=== PATIENT | male | born 1975 | race Caucasian/White ===

== ENCOUNTER 2018-01-20 18:42 | Emergency (ER) | payer BC, SELFPAY ==
[2018-01-20 18:49] VITALS: BP 161/95; PULSE 97; RESP 18; TEMP 36.9; O2SAT 99; BMI 31.0
[2018-01-20 18:56] VITALS: BP 161/95; PULSE 97; RESP 18; TEMP 36.9; O2SAT 99; BMI 31.0
[2018-01-20] MEDS: SODIUM CHLORIDE 0.9% 1,000 ML 1000 ML IV (19:38)
[2018-01-20] MEDS: ONDANSETRON 4 MG/2 ML INJ IV ×2 (19:38→22:02)
--- NOTE | 2018-01-20 19:55 | ED.NAVMDI ---
HPI - Nausea/Vomiting/Diarrhea <ROZ Bryson - Last Filed: 01/20/18 22:49> General Chief complaint: Nausea/Vomiting/Diarrhea Stated complaint: EXTREME NAUSEA AND HAS BEEN VOMITING Time Seen by Provider: 01/20/18 19:43 Source: patient and family Mode of arrival: ambulatory Limitations: no limitations History of Present Illness HPI Narrative: Patient presents with abdominal pain and nausea today. Patient has had several episodes of this pain and nausea. States that his workup sores come back normal. States has been ongoing for many years. Then it starts randomly. Patient denies any constipation, fevers, shortness of breath or chest pain. States he smokes marijuana every day. States his pain is generalized. Denies urinary symptoms, cough, congestion or shortness of breath. Related Data Home Medications Medication Instructions Recorded Confirmed omeprazole #0 04/27/13 sertraline [Zoloft] #0 04/27/13 Previous Rx's Medication Instructions Recorded prednisone 40 mg PO Q DAY #8 tab 06/05/17 promethazine 25 mg PO Q6HP PRN #10 tab 06/05/17 promethazine [Phenadoz] 25 mg NE Q6HP PRN #5 supp 06/05/17 prednisone 10 mg PO SEE INSTRUCTIONS 12 Days 06/09/17 #0 tab promethazine [Phenergan] 25 mg RC Q6HP PRN #20 06/09/17 dicyclomine 10 mg PO Q8HP PRN #10 cap 06/14/17 Allergies Allergy/AdvReac Type Severity Reaction Status Date / Time No Known Allergies Allergy Uncoded 11/11/17 12:26 Review of Systems <ROZ Bryson - Last Filed: 01/20/18 22:49> Review of Systems GENERAL: See HPI HEENT: Denies sinus pain, ear pain, sore throat, difficulty swallowing, dizziness. RESPIRATORY: Denies dyspnea, cough, wheezing, hemoptysis, sputum. CARDIOVASCULAR: Denies chest pain, palpitations, orthopnea, edema, GASTROINTESTINAL: See HPI : Denies dysuria, frequency, incontinence, hematuria, urinary retention. MUSCULOSKELETAL: denies weakness, joint pain, or bony pain SKIN: Denies rash, skin lesions, or other NEUROLOGIC: Denies weakness, headache, numbness, change in speech, confusion, seizures, incoordination. PSYCHIATRIC: No concerning psychosocial issues. 12 point review of systems is negative except for those stated above Exam <DIAMOND Bryson - Last Filed: 01/20/18 22:49> Narrative Exam Narrative: GENERAL: This is a well-nourished, well-developed patient, with a bedside HEAD: Atraumatic. Normocephalic. No temporal or scalp tenderness. EYES: Pupils equal round and reactive. Extraocular motions intact. No scleral icterus. No injection or drainage. ENT: Nose without bleeding, purulent drainage or septal hematoma. Throat without erythema, tonsillar hypertrophy or exudate. Uvula midline. Airway patent. NECK: Trachea midline. No JVD or lymphadenopathy. Supple, nontender, no meningeal signs. CARDIOVASCULAR: Regular rate and rhythm without murmurs, gallops, or rubs. RESPIRATORY: Clear to auscultation. Breath sounds equal bilaterally. No wheezes, rales, or rhonchi. GASTROINTESTINAL: Abdomen soft, no guarding to palpation. No rebound tenderness. Generalized pain to palpation. Negative for Wright sign. EXTREMITIES: No clubbing, cyanosis, or edema. No joint tenderness, effusion, or edema noted. BACK: Nontender without deformity or crepitance. No flank tenderness. NEURO: AOx3. SKIN: No rash or erythema. Initial Vital Signs Initial Vital Signs: Vital Signs Temperature 98.5 F 01/20/18 18:49 Pulse Rate 97 H 01/20/18 18:49 Respiratory Rate 18 01/20/18 18:49 Blood Pressure 161/95 H 01/20/18 18:49 Pulse Oximetry 99 01/20/18 18:49 <Marylu Villela DO - Last Filed: 01/21/18 00:48> Initial Vital Signs Initial Vital Signs: Vital Signs Temperature 98.5 F 01/20/18 18:49 Pulse Rate 97 H 01/20/18 18:49 Respiratory Rate 18 01/20/18 18:49 Blood Pressure 161/95 H 01/20/18 18:49 Pulse Oximetry 99 01/20/18 18:49 Course <DIAMOND Bryson - Last Filed: 01/20/18 22:49> Hospital Course: Patient presented for abdominal pain and nausea. He had an IV placed, was given fluids, received Zofran and morphine for pain and nausea. He had a CBC, CMP, lipase and troponin drawn. With WBCs back slightly elevated. Discussed at length with patient present cons of another CT scan including increased radiation. Patient elected for CT scan, came back normal. Patient received a 2nd dose of Zofran and morphine for pain and nausea. Discussed at length with patient further workup, patient declined and stated he would follow up with primary care provider. Patient's urine came back normal as well. Discussed at length return precautions for emergency department including fevers, sudden change in belly pain. I spoke with the patient and his several times throughout his stay. Patient had no questions or concerns upon discharge. Orders Ordered: ED Orders 01/20/18 19:30 Complete Blood Count AUTO DIFF Stat Comprehensive Metabolic Panel Stat Lipase Stat Troponin with CK Cardiac Panel Stat 01/20/18 19:54 EKG-12 Lead Stat 01/20/18 21:08 CT abdomen pelvis w con Stat Discontinued Medications Sodium Chloride (Normal Saline 0.9%) 1,000 mls @ 1,000 mls/hr IV BOLUS ONE Stop: 01/20/18 20:35 Last Infusion: 01/20/18 20:46 Dose: 0 mls/hr Admin: 01/20/18 19:38 Dose: 1,000 mls/hr Sodium Chloride (Normal Saline 0.9%) 1,000 mls @ 150 mls/hr IV CONT JOSE Last Admin: 01/20/18 20:09 Dose: Not Given Morphine Sulfate (Morphine) 2 mg IV NOW ONE Stop: 01/20/18 19:55 Last Admin: 01/20/18 20:09 Dose: 2 mg Morphine Sulfate (Morphine) 2 mg IV NOW ONE Stop: 01/20/18 21:57 Last Admin: 01/20/18 22:02 Dose: 2 mg Ondansetron HCl (Zofran) 4 mg IV NOW ONE Stop: 01/20/18 19:38 Last Admin: 01/20/18 19:38 Dose: 4 mg Ondansetron HCl (Zofran) 4 mg IV NOW ONE Stop: 01/20/18 21:57 Last Admin: 01/20/18 22:02 Dose: 4 mg Vital Signs - 8 hr 01/20/18 18:49 01/20/18 18:56 01/20/18 20:39 Temperature 98.5 F 98.5 F Pulse Rate 97 H 97 H 98 H Respiratory Rate 18 18 18 Blood Pressure 161/95 H 161/95 H Blood Pressure [Right Arm] 147/88 H Pulse Oximetry 99 99 100 01/20/18 22:18 Temperature Pulse Rate 94 H Respiratory Rate 17 Blood Pressure Blood Pressure [Right Arm] 143/90 H Pulse Oximetry 100 <Marylu Villela, - Last Filed: 01/21/18 00:48> Orders Ordered: ED Orders 01/20/18 19:30 Complete Blood Count AUTO DIFF Stat Comprehensive Metabolic Panel Stat Lipase Stat Troponin with CK Cardiac Panel Stat 01/20/18 19:54 EKG-12 Lead Stat 01/20/18 21:08 CT abdomen pelvis w con Stat Discontinued Medications Sodium Chloride (Normal Saline 0.9%) 1,000 mls @ 1,000 mls/hr IV BOLUS ONE Stop: 01/20/18 20:35 Last Infusion: 01/20/18 20:46 Dose: 0 mls/hr Admin: 01/20/18 19:38 Dose: 1,000 mls/hr Sodium Chloride (Normal Saline 0.9%) 1,000 mls @ 150 mls/hr IV CONT JOSE Last Admin: 01/20/18 20:09 Dose: Not Given Morphine Sulfate (Morphine) 2 mg IV NOW ONE Stop: 01/20/18 19:55 Last Admin: 01/20/18 20:09 Dose: 2 mg Morphine Sulfate (Morphine) 2 mg IV NOW ONE Stop: 01/20/18 21:57 Last Admin: 01/20/18 22:02 Dose: 2 mg Ondansetron HCl (Zofran) 4 mg IV NOW ONE Stop: 01/20/18 19:38 Last Admin: 01/20/18 19:38 Dose: 4 mg Ondansetron HCl (Zofran) 4 mg IV NOW ONE Stop: 01/20/18 21:57 Last Admin: 01/20/18 22:02 Dose: 4 mg Vital Signs - 8 hr 01/20/18 18:49 01/20/18 18:56 01/20/18 20:39 Temperature 98.5 F 98.5 F Pulse Rate 97 H 97 H 98 H Respiratory Rate 18 18 18 Blood Pressure 161/95 H 161/95 H Blood Pressure [Right Arm] 147/88 H Pulse Oximetry 99 99 100 01/20/18 22:18 Temperature Pulse Rate 94 H Respiratory Rate 17 Blood Pressure Blood Pressure [Right Arm] 143/90 H Pulse Oximetry 100 MDM - Nausea/Vomiting/Diarrhea <Regla Myrick, FREELANCE OPERATOR- - Last Filed: 01/20/18 22:49> Lab Data Attestation: I reviewed the patient's lab results. Result diagrams: 01/20/18 19:30 01/20/18 19:30 Lab Results 01/20/18 01/20/18 01/20/18 Range/Units 19:30 19:30 19:30 WBC 14.3 H (4.5-11.0) X10^3/uL RBC 5.11 (4.5-5.9) X10^6/uL Hgb 16.1 (13.5-17.5) g/dL Hct 46.9 (41-53) % MCV 91.7 (80-100) fL MCH 31.5 (26-34) PG MCHC 34.4 (30-36) % RDW 13.7 (11.6-14.8) % Plt Count 297 (150-400) X10^3/uL Neut % (Auto) 92.1 H (50-75) % Lymph % (Auto) 5.7 L (25-40) % [place] % (Auto) 2.1 L (3-14) % Eos % (Auto) 0.0 L (2-4) % Baso % (Auto) 0.1 (0-2) % Neut # (Auto) 07235 H (6030-8906) /uL Sodium 144 (137-145) mmol/L Potassium 4.1 (3.4-5.1) mmol/L Chloride 104 (98-107) mmol/L Carbon Dioxide 21 L (22-32) mmol/L BUN 20 (9-20) mg/dL Creatinine 0.80 (0.66-1.25) mg/dL Estimated GFR > 60.0 (>60) mL/min BUN/Creatinine Ratio 25.0 H (6-22) Glucose 149 H (70-100) mg/dL Calcium 10.1 (8.4-10.2) mg/dL Total Bilirubin 2.1 H (0.2-1.3) mg/dL AST 29 (17-59) IU/L ALT 39 (21-72) IU/L Alkaline Phosphatase 90 (38-126) U/L Total Creatine Kinase 58 (55-170) U/L Troponin I < 0.012 (0.01-0.034) ng/mL Total Protein 8.6 H (6.3-8.2) g/dL Albumin 5.2 H (3.5-5.0) g/dL Globulin 3.4 (1.7-4.1) g/dL Albumin/Globulin Ratio 1.5 (1.0-2.8) Lipase 35 (23-300) U/L ECG Data Attestation: I personally reviewed and interpreted this ECG as follows: Prior ECG tracings: not available for review Interpretation: Sinus rhythm. Ventricular rate 96. No ST elevation or depression. No ectopy.NE interval 154 MDM Narrative Medical decision making narrative: Patient presented for repeat abdominal pain. Blood work was concerning for slightly elevated WBCs. However otherwise grossly normal CBC, CMP, lipase and negative troponin. EKG was within normal limits. CT scan showed no acute findings. Urine came back normal. Patient declined any further workup at this point time. Stated to follow up his primary care provider. I encouraged him to trial several weeks without smoking marijuana to see if that helps his pain and nausea. Patient had no questions or concerns upon discharge. Discussed ED precautions. Patient declined further prescriptions for pain and nausea medication. <Marylu Villela, - Last Filed: 01/21/18 00:48> Lab Data Lab Results 01/20/18 01/20/18 01/20/18 Range/Units 19:30 19:30 19:30 WBC 14.3 H (4.5-11.0) X10^3/uL RBC 5.11 (4.5-5.9) X10^6/uL Hgb 16.1 (13.5-17.5) g/dL Hct 46.9 (41-53) % MCV 91.7 (80-100) fL MCH 31.5 (26-34) PG MCHC 34.4 (30-36) % RDW 13.7 (11.6-14.8) % Plt Count 297 (150-400) X10^3/uL Neut % (Auto) 92.1 H (50-75) % Lymph % (Auto) 5.7 L (25-40) % [place] % (Auto) 2.1 L (3-14) % Eos % (Auto) 0.0 L (2-4) % Baso % (Auto) 0.1 (0-2) % Neut # (Auto) 80451 H (5607-7250) /uL Sodium 144 (137-145) mmol/L Potassium 4.1 (3.4-5.1) mmol/L Chloride 104 (98-107) mmol/L Carbon Dioxide 21 L (22-32) mmol/L BUN 20 (9-20) mg/dL Creatinine 0.80 (0.66-1.25) mg/dL Estimated GFR > 60.0 (>60) mL/min BUN/Creatinine Ratio 25.0 H (6-22) Glucose 149 H (70-100) mg/dL Calcium 10.1 (8.4-10.2) mg/dL Total Bilirubin 2.1 H (0.2-1.3) mg/dL AST 29 (17-59) IU/L ALT 39 (21-72) IU/L Alkaline Phosphatase 90 (38-126) U/L Total Creatine Kinase 58 (55-170) U/L Troponin I < 0.012 (0.01-0.034) ng/mL Total Protein 8.6 H (6.3-8.2) g/dL Albumin 5.2 H (3.5-5.0) g/dL Globulin 3.4 (1.7-4.1) g/dL Albumin/Globulin Ratio 1.5 (1.0-2.8) Lipase 35 (23-300) U/L Discharge Plan Departure Patient Disposition: Home, Self-Care Clinical Impression: Abdominal pain, Nausea Discharge Date/Time: 01/20/18 22:54 Interventions: ED Discharge Assessment Last Done: 01/20/18 22:53 Instructions: Nausea (Alternative Therapy), DI for Abdominal Pain-Adult, DI for Nausea -- Adult Activity Restrictions/Additional Instructions: Today we did some lab work and a CT scan. The CT came back normal. We discussed that you have a slightly elevated white count which could indicate infection or be inflammatory. I would like you to follow up with primary care provider. I suggest that you stop smoking or using marijuana every day. I suggest that you avoid citrus, acidic foods, spicy foods or fried foods. ED simple diet. Come back to the emergency department if he develops any fever, sudden changes in her belly pain, chest pain or shortness of breath. Prescriptions: No Action sertraline [Zoloft] 25 MG tablet Qty: 0 RF: 0 omeprazole 20 MG capsule,delayed release(DR/EC) Qty: 0 RF: 0 promethazine [Phenadoz] 25 MG suppository 25 mg NE Q6HP PRNQty: 5 RF: 0 prednisone 20 MG tablet 40 mg PO Q DAY Qty: 8 RF: 0 promethazine 25 MG tablet 25 mg PO Q6HP PRNQty: 10 RF: 0 prednisone 10 MG tablet 10 mg PO SEE INSTRUCTIONS 12 Days Qty: 0 RF: 0 promethazine [Phenergan] 25 MG suppository 25 mg RC Q6HP PRNQty: 20 RF: 0 dicyclomine 10 MG capsule 10 mg PO Q8HP PRNQty: 10 RF: 0 Referrals: Eric Sun MD [Primary Care Provider] - <Marylu Villela DO - Last Filed: 01/21/18 00:48> Cosign ED Attending Cossandyature Attestation: I was immediately available in the department for consultation. Documentation has been reviewed. I agree with assessment and plan.
[2018-01-20] MEDS: MORPHINE 2 MG/ML INJ IV ×2 (20:09→22:02)
[2018-01-20 20:12] LABS: Add Manual Diff / Slide Review NO; Basophils Percent Auto 0.1 % (0-2); Hematocrit 46.9 % (41-53); Hemoglobin 16.1 g/dL (13.5-17.5); Lymphocytes Percent Auto 5.7 % (25-40); Mean Corpuscular HGB Conc 34.4 % (30-36); Mean Corpuscular Hemoglobin 31.5 PG (26-34); Mean Corpuscular Volume 91.7 fL (80-100); Monocytes Percent Auto 2.1 % (3-14); Neutrophils Absolute Auto 13100 /uL (3000-5900); Neutrophils Percent Auto 92.1 % (50-75); Platelet Count 297 X10^3/uL (150-400); Red Blood Cell Count 5.11 X10^6/uL (4.5-5.9); Red Cell Distribution Width 13.7 % (11.6-14.8); White Blood Cell Count 14.3 X10^3/uL (4.5-11.0)
[2018-01-20 20:14] LABS: Creatine Kinase 58 U/L (55-170)
[2018-01-20 20:16] LABS: Alanine Aminotransferase 39 IU/L (21-72); Albumin 5.2 g/dL (3.5-5.0); Albumin Globulin Ratio 1.5 (1.0-2.8); Alkaline Phosphatase 90 U/L (38-126); Aspartate Aminotransferase 29 IU/L (17-59); Bilirubin Total 2.1 mg/dL (0.2-1.3); Blood Urea Nitrogen 20 mg/dL (9-20); Calcium 10.1 mg/dL (8.4-10.2); Carbon Dioxide 21 mmol/L (22-32); Chloride 104 mmol/L (98-107); Estimated Glomerular Filt Rate > 60.0 mL/min (>60); Globulin 3.4 g/dL (1.7-4.1); Glucose 149 mg/dL (70-100); HEMOLYSIS 17 (0-50); Lipase 35 U/L (23-300); Potassium 4.1 mmol/L (3.4-5.1); Sodium 144 mmol/L (137-145); Total Protein 8.6 g/dL (6.3-8.2)
[2018-01-20 20:27] LABS: Troponin I < 0.012 ng/mL (0.01-0.034)
[2018-01-20 20:39] VITALS: BP 147/88; PULSE 98; RESP 18; O2SAT 100
--- NOTE | 2018-01-20 21:08 | DI.CT.S_ITS ---
PROCEDURE: CT ABDOMEN PELVIS W CON INDICATIONS: abdominal pain ongoing with nausea and vomiting TECHNIQUE: After the administration of oral and intravenous contrast, 5 mm thick sections acquired from the diaphragms to the symphysis. 5 mm thick coronal and sagittal reformats were performed. For radiation dose reduction, the following was used: automated exposure control, adjustment of mA and/or kV according to patient size. COMPARISON: None. FINDINGS: Image quality: Diagnostic ABDOMEN: Lung bases: Lung bases are clear. Heart size is normal. Solid organs: Liver is normal in size and enhancement. Gallbladder is not enlarged or inflamed. Biliary system is non-dilated. Pancreas enhances normally. Spleen is normal in size and enhancement. No adrenal nodules. Kidneys are normal in size and enhancement, without hydronephrosis. Peritoneum and bowel: Stomach, duodenum, and remainder of the small bowel are within normal limits. The colon is decompressed and subsequently not well evaluated. There is colonic wall thickening are evident through the region of the transverse and descending colon. No surrounding inflammation within the adjacent mesentery is evident. The appendix is well-visualized and normal. No free fluid, loculated fluid collection or free air is evident. Nodes and vessels: No retroperitoneal or mesenteric adenopathy. Aorta and inferior vena cava are normal in caliber. There is mild aortic atherosclerosis. Bones: No acute fractures or suspicious osseous lesions are evident. Age-appropriate degenerative changes of the spine are noted. Imaged loops are grossly intact. PELVIS: Genitourinary: Bladder wall thickness is normal. The prostate is not enlarged. Miscellaneous: No inguinal hernias or adenopathy. There is no free fluid or loculated fluid collection Bones: No suspicious bony lesions. No acute pelvic fractures are identified. IMPRESSION: 1. No acute process is evident within the abdomen or pelvis. No signs of infection. No abscess. 2. No bowel obstruction. 3. Mild wall thickening of the mid to distal colon is likely exaggerated by lack of intraluminal stool. An inflammatory process cannot be excluded, but is felt to be unlikely. 4. Normal appendix. 5. Mild aortic atherosclerosis. Dictated by: Miguel Duggan M.D. on 01/20/2018 at 22:04 Approved by: Miguel Duggan M.D. on 01/20/2018 at 22:08
[2018-01-20 22:18] VITALS: BP 143/90; PULSE 94; RESP 17; O2SAT 100
== END 2018-01-20 22:54 | disposition home or self-care (01) ==
PROVIDERS: Emergency Provider Nurse Practitioner Family; Family Provider Family Medicine; PCP Family Medicine
DX: R10.9 Unspecified abdominal pain (principal); R11.2 Nausea with vomiting, unspecified
CPT/HCPCS: 36591; 74177; 80053; 81003; 82550; 82553; 83690; 84484; 85025; 93005; 93010; 96361; 96374; 96375; 96376; 99283; 99285; J2270; J2405; Q9967

== ENCOUNTER 2018-08-25 12:09 | Emergency (ER) | payer BC, SELFPAY ==
[2018-08-25] VITALS (7 sets, daily range): BP systolic 111–192; BP diastolic 67–103; PULSE 72–97; RESP 14–22; TEMP 36.4–36.7; O2SAT 97–100; BMI 29.5
--- NOTE | 2018-08-25 12:32 | DI.RAD.S_ITS ---
PROCEDURE: XR ACUTE ABDOMEN SERIES INDICATIONS: vomiting since mon, not passing gas, distended abd, LLQ pain TECHNIQUE: One view chest and two views of the abdomen were acquired. COMPARISON: None. FINDINGS: Surgical changes and devices: None. Chest: Lungs are clear. Heart size is normal. No pleural effusions. No pneumoperitoneum. Abdomen: Bowel gas pattern is normal. No suspicious calcifications. Visualized solid organ contours appear normal. Bones: No suspicious bony lesions. IMPRESSION: Normal bowel gas pattern, etiology of emesis is not seen. No free air found. Dictated by: Nino Toro M.D. on 08/25/2018 at 13:13 Approved by: Nino Toro M.D. on 08/25/2018 at 13:14
[2018-08-25] MEDS: ONDANSETRON 4 MG/2 ML INJ IV (12:34)
[2018-08-25] MEDS: SODIUM CHLORIDE 0.9% 1,000 ML 1000 ML IV ×2 (12:34→14:12)
[2018-08-25 12:35] LABS: Add Manual Diff / Slide Review NO; Basophils Absolute Auto 0 /uL (0-100); Basophils Percent Auto 0.2 % (0-2); Eosinophils Absolute Auto 0 /uL (0-450); Hematocrit 46.4 % (41-53); Hemoglobin 16.4 g/dL (13.5-17.5); Lymphocytes Absolute Auto 700 /uL (1100-4500); Lymphocytes Percent Auto 7.1 % (25-40); Mean Corpuscular HGB Conc 35.3 % (30-36); Mean Corpuscular Hemoglobin 31.9 PG (26-34); Mean Corpuscular Volume 90.4 fL (80-100); Monocytes Absolute Auto 300 /uL (0-900); Monocytes Percent Auto 2.6 % (3-14); Neutrophils Absolute Auto 8800 /uL (1500-7000); Neutrophils Percent Auto 90.1 % (50-75); Platelet Count 296 X10^3/uL (150-400); Red Blood Cell Count 5.12 X10^6/uL (4.5-5.9); Red Cell Distribution Width 13.3 % (11.6-14.8); White Blood Cell Count 9.8 X10^3/uL (4.5-11.0)
[2018-08-25 12:42] LABS: INR 1.2 (0.9-1.3); Prothrombin Time 13.8 SECONDS (10.1-12.7)
[2018-08-25 12:45] LABS: PTT Partial Thromboplastin Tim 29 SECONDS (26.4-36.2)
[2018-08-25 12:46] LABS: Alanine Aminotransferase 47 IU/L (21-72); Albumin 5.1 g/dL (3.5-5.0); Albumin Globulin Ratio 1.5 (1.0-2.8); Alkaline Phosphatase 90 U/L (38-126); Aspartate Aminotransferase 27 IU/L (17-59); BUN Creatinine Ratio 24.3 (6-22); Bilirubin Total 1.5 mg/dL (0.2-1.3); Blood Urea Nitrogen 17 mg/dL (9-20); Calcium 9.6 mg/dL (8.4-10.2); Carbon Dioxide 20 mmol/L (22-32); Chloride 105 mmol/L (98-107); Estimated Glomerular Filt Rate > 60.0 mL/min (>60); Globulin 3.4 g/dL (1.7-4.1); Glucose 139 mg/dL (70-100); HEMOLYSIS < 15 (0-50); Lipase 49 U/L (23-300); Sodium 141 mmol/L (137-145); Total Protein 8.5 g/dL (6.3-8.2)
--- NOTE | 2018-08-25 13:07 | ED.ABDPAIN ---
HPI - Abdominal Pain <Sarahy Swartz PA-C - Last Filed: 08/25/18 20:21> General Chief Complaint: Abdominal Pain Stated Complaint: severe nausea, cant hold anything down Time Seen by Provider: 08/25/18 13:03 Source: patient and family Mode of arrival: ambulatory Limitations: no limitations History of Present Illness HPI narrative: this 43-year-old male comes to ED with what he describes as a recurrence of his previous abdominal pain and nausea. He states that his symptoms started on Thursday with diarrhea and pain, so he did not realize this felt the same until the next day. Diarrhea had resolved by then, but he began to have persistent pain and nausea. He states he has been unable to keep down any food or fluids including when he tried to eat some oatmeal today. He states he probably has vomited dozen times today. He states that he is now vomiting just a little bit of fluid and bilious type material. He has not had any blood in the vomitus. He denies any fever, chills, sweats. He denies any urinary symptoms. He has not had a bowel movement since the diarrheal episodes on Thursday. He denies any chest pain or dyspnea. Denies any recent cough, upper respiratory symptoms or illness. he states he has had workup with GI a capsule study with no specific findings. Related Data Home Medications Medication Instructions Recorded Confirmed omeprazole 20 mg PO DAILY PRN #0 04/27/13 08/25/18 Previous Rx's Medication Instructions Recorded prochlorperazine [Compazine] 25 mg IN Q12H PRN #12 each 08/25/18 Allergies Allergy/AdvReac Type Severity Reaction Status Date / Time No Known Drug Allergies Allergy Verified 08/25/18 12:18 Review of Systems <Sarahy Swartz PA-C - Last Filed: 08/25/18 20:21> Review of Systems ROS Unobtainable: All systems reviewed & are unremarkable except as noted in HPI and below Exam <Sarahy Swartz PA-C - Last Filed: 08/25/18 20:21> Narrative Exam Narrative: GENERAL APPEARANCE: Patient sitting comfortably, in no distress. HEENT: PERRL, EOMI, no scleral icterus, normal oropharynx NECK: Supple, no masses LUNGS: Clear to auscultation bilaterally. HEART: Rate and rhythm regular, normal S1 and S2, no S3 or S4. ABDOMEN: mildly distended, hypoactive bowel sounds present x 4 quadrants, no masses palpable, no hepatosplenomegaly. tender on the left side just proximal to the epigastrium up to the costal margin, most at the midclavicular line. No guarding or rebound, no CVAT EXTREMITIES: No edema DERMATOLOGIC: No jaundice or exanthem NEUROLOGIC: Alert and oriented with normal speech and coordination Initial Vital Signs Initial Vital Signs: Vital Signs Temperature 97.6 F 08/25/18 12:12 Pulse Rate 82 08/25/18 12:12 Respiratory Rate 14 08/25/18 12:12 Blood Pressure 162/103 H 08/25/18 12:12 Pulse Oximetry 100 08/25/18 12:12 <Sharifa Lyons MD - Last Filed: 09/02/18 08:59> Initial Vital Signs Initial Vital Signs: Vital Signs Temperature 97.6 F 08/25/18 12:12 Pulse Rate 82 08/25/18 12:12 Respiratory Rate 14 08/25/18 12:12 Blood Pressure 162/103 H 08/25/18 12:12 Pulse Oximetry 100 08/25/18 12:12 Course <Sarahy Swartz PA-C - Last Filed: 08/25/18 20:21> Additional Information: Patient is feeling much improved at the time of discharge and was sleeping comfortably. He feels like symptoms are consistent with his previous episodes that tend to resolve with a little time once he gets treated with IV fluids and medications and able to manage the nausea. He agreed to return if acutely worsening symptoms again, or new symptoms such as fever. He will follow up with PCP and we also talked about follow-up with GI specialist to determine whether further testing needed. Orders Ordered: Discontinued Medications Al Hydrox/Mg Hydrox/Simethicone 20 ml/ Lidocaine HCl 15 ml 0 ml PO NOW ONE Stop: 08/25/18 13:22 Last Admin: 08/25/18 14:56 Dose: 35 ml Sodium Chloride (Normal Saline 0.9%) 1,000 mls @ 1,000 mls/hr IV BOLUS ONE Stop: 08/25/18 13:20 Last Infusion: 08/25/18 14:12 Dose: 0 mls/hr Admin: 08/25/18 12:34 Dose: 1,000 mls/hr Sodium Chloride (Normal Saline 0.9%) 1,000 mls @ 1,000 mls/hr IV BOLUS ONE Stop: 08/25/18 14:35 Last Infusion: 08/25/18 16:08 Dose: 0 mls/hr Admin: 08/25/18 14:12 Dose: 1,000 mls/hr Ketorolac Tromethamine (Toradol) 30 mg IV NOW ONE Stop: 08/25/18 13:22 Last Admin: 08/25/18 13:26 Dose: 30 mg Morphine Sulfate (Morphine) 4 mg IV NOW ONE Stop: 08/25/18 13:22 Last Admin: 08/25/18 13:27 Dose: 4 mg Ondansetron HCl (Zofran) 4 mg IV NOW ONE Stop: 08/25/18 12:22 Last Admin: 08/25/18 12:34 Dose: 4 mg Pantoprazole Sodium (Protonix) 40 mg IV NOW ONE Stop: 08/25/18 13:22 Last Admin: 08/25/18 13:26 Dose: 40 mg Prochlorperazine (Compazine) 10 mg IV NOW ONE Stop: 08/25/18 13:35 Last Admin: 08/25/18 13:39 Dose: 10 mg Prochlorperazine (Compazine) 10 mg IV NOW ONE Stop: 08/25/18 13:37 Last Admin: 08/25/18 13:38 Dose: Not Given Vital Signs - 8 hr 08/25/18 13:31 08/25/18 13:38 08/25/18 13:39 Temperature Pulse Rate 72 80 80 Respiratory Rate 14 Blood Pressure 162/80 H 192/90 H Blood Pressure [Left Arm] 162/83 H Pulse Oximetry 100 08/25/18 15:03 08/25/18 16:05 08/25/18 16:25 Temperature 98.1 F Pulse Rate 97 H 96 H 96 H Respiratory Rate 22 18 18 Blood Pressure 111/67 Blood Pressure [Left Arm] 153/93 H 111/67 Pulse Oximetry 100 97 97 <Sharifa Lyons MD - Last Filed: 09/02/18 08:59> Orders Ordered: Discontinued Medications Al Hydrox/Mg Hydrox/Simethicone 20 ml/ Lidocaine HCl 15 ml 0 ml PO NOW ONE Stop: 08/25/18 13:22 Last Admin: 08/25/18 14:56 Dose: 35 ml Sodium Chloride (Normal Saline 0.9%) 1,000 mls @ 1,000 mls/hr IV BOLUS ONE Stop: 08/25/18 13:20 Last Infusion: 08/25/18 14:12 Dose: 0 mls/hr Admin: 08/25/18 12:34 Dose: 1,000 mls/hr Sodium Chloride (Normal Saline 0.9%) 1,000 mls @ 1,000 mls/hr IV BOLUS ONE Stop: 08/25/18 14:35 Last Infusion: 08/25/18 16:08 Dose: 0 mls/hr Admin: 08/25/18 14:12 Dose: 1,000 mls/hr Ketorolac Tromethamine (Toradol) 30 mg IV NOW ONE Stop: 08/25/18 13:22 Last Admin: 08/25/18 13:26 Dose: 30 mg Morphine Sulfate (Morphine) 4 mg IV NOW ONE Stop: 08/25/18 13:22 Last Admin: 08/25/18 13:27 Dose: 4 mg Ondansetron HCl (Zofran) 4 mg IV NOW ONE Stop: 08/25/18 12:22 Last Admin: 08/25/18 12:34 Dose: 4 mg Pantoprazole Sodium (Protonix) 40 mg IV NOW ONE Stop: 08/25/18 13:22 Last Admin: 08/25/18 13:26 Dose: 40 mg Prochlorperazine (Compazine) 10 mg IV NOW ONE Stop: 08/25/18 13:35 Last Admin: 08/25/18 13:39 Dose: 10 mg Prochlorperazine (Compazine) 10 mg IV NOW ONE Stop: 08/25/18 13:37 Last Admin: 08/25/18 13:38 Dose: Not Given Vital Signs - 8 hr 08/25/18 13:31 08/25/18 13:38 08/25/18 13:39 Temperature Pulse Rate 72 80 80 Respiratory Rate 14 Blood Pressure 162/80 H 192/90 H Blood Pressure [Left Arm] 162/83 H Pulse Oximetry 100 08/25/18 15:03 08/25/18 16:05 08/25/18 16:25 Temperature 98.1 F Pulse Rate 97 H 96 H 96 H Respiratory Rate 22 18 18 Blood Pressure 111/67 Blood Pressure [Left Arm] 153/93 H 111/67 Pulse Oximetry 100 97 97 MDM - Abdominal Pain <Sarahy Swartz PA-C - Last Filed: 08/25/18 20:21> Lab Data Attestation: I reviewed the patient's lab results. Result diagrams: 08/25/18 12:30 08/25/18 12:30 Lab Results 08/25/18 08/25/18 08/25/18 Range/Units 12:30 12:30 12:30 WBC 9.8 (4.5-11.0) X10^3/uL RBC 5.12 (4.5-5.9) X10^6/uL Hgb 16.4 (13.5-17.5) g/dL Hct 46.4 (41-53) % MCV 90.4 (80-100) fL MCH 31.9 (26-34) PG MCHC 35.3 (30-36) % RDW 13.3 (11.6-14.8) % Plt Count 296 (150-400) X10^3/uL Neut % (Auto) 90.1 H (50-75) % Lymph % (Auto) 7.1 L (25-40) % [place] % (Auto) 2.6 L (3-14) % Eos % (Auto) 0.0 L (2-4) % Baso % (Auto) 0.2 (0-2) % Neut # (Auto) 8800 H (1994-3973) /uL Lymph # (Auto) 700 L (3608-0386) /uL [place] # (Auto) 300 (0-900) /uL Eos # (Auto) 0 (0-450) /uL Baso # (Auto) 0 (0-100) /uL PT 13.8 H (10.1-12.7) SECONDS INR 1.2 (0.9-1.3) APTT 29 (26.4-36.2) SECONDS Sodium 141 (137-145) mmol/L Potassium 4.0 (3.4-5.1) mmol/L Chloride 105 (98-107) mmol/L Carbon Dioxide 20 L (22-32) mmol/L BUN 17 (9-20) mg/dL Creatinine 0.70 (0.66-1.25) mg/dL Estimated GFR > 60.0 (>60) mL/min BUN/Creatinine Ratio 24.3 H (6-22) Glucose 139 H (70-100) mg/dL Calcium 9.6 (8.4-10.2) mg/dL Total Bilirubin 1.5 H (0.2-1.3) mg/dL AST 27 (17-59) IU/L ALT 47 (21-72) IU/L Alkaline Phosphatase 90 (38-126) U/L Total Protein 8.5 H (6.3-8.2) g/dL Albumin 5.1 H (3.5-5.0) g/dL Globulin 3.4 (1.7-4.1) g/dL Albumin/Globulin Ratio 1.5 (1.0-2.8) Lipase 49 (23-300) U/L Point of care testing: Urine Dip Bedside Urine Glucose Negative Bedside Urine Bilirubin - Negative Bedside Urine Ketone +++ 80 Urine Specific [place] 1.020 Bedside Urine Occult Blood - Negative Bedside Urine pH 6.5 Bedside Urine Protein +/- 15 Bedside Urine Urobilinogen - Negative Bedside Urine Nitrite - Negative Bedside Urine Leukocytes - Negative Esterase Imaging Data Abdominal x-ray: Radiologist's impression: 12 Sarahy Swartz PA-C Find Patient Imaging ACTIVITY DATE EXAM STATUS AUTHOR 08/25/18 12:32 Signed Nino Toro [place] [id number] XRay Report Signed Patient: Rashaad Moffett OMR#: [id number] : 1975Acct:[id number] Age/Sex: 43 / MDate of Service: 08/25/18 Loc: ED Accession Number: [id number] Procedure: XR acute abdomen series Ordering Provider: Sharifa Lyons MD PROCEDURE: XR ACUTE ABDOMEN SERIES INDICATIONS: vomiting since mon, not passing gas, distended abd, LLQ pain TECHNIQUE: One view chest and two views of the abdomen were acquired. COMPARISON: None. FINDINGS: Surgical changes and devices: None. Chest: Lungs are clear. Heart size is normal. No pleural effusions. No pneumoperitoneum. Abdomen: Bowel gas pattern is normal. No suspicious calcifications. Visualized solid organ contours appear normal. Bones: No suspicious bony lesions. IMPRESSION: Normal bowel gas pattern, etiology of emesis is not seen. No free air found. Dictated by: Nino Toro M.D. on 08/25/2018 at 13:13 Approved by: Nino Toro M.D. on 08/25/2018 at 13:14 <Sharifa Lyons MD - Last Filed: 09/02/18 08:59> Lab Data Lab Results 08/25/18 08/25/18 08/25/18 Range/Units 12:30 12:30 12:30 WBC 9.8 (4.5-11.0) X10^3/uL RBC 5.12 (4.5-5.9) X10^6/uL Hgb 16.4 (13.5-17.5) g/dL Hct 46.4 (41-53) % MCV 90.4 (80-100) fL MCH 31.9 (26-34) PG MCHC 35.3 (30-36) % RDW 13.3 (11.6-14.8) % Plt Count 296 (150-400) X10^3/uL Neut % (Auto) 90.1 H (50-75) % Lymph % (Auto) 7.1 L (25-40) % [place] % (Auto) 2.6 L (3-14) % Eos % (Auto) 0.0 L (2-4) % Baso % (Auto) 0.2 (0-2) % Neut # (Auto) 8800 H (3194-6507) /uL Lymph # (Auto) 700 L (1493-6647) /uL [place] # (Auto) 300 (0-900) /uL Eos # (Auto) 0 (0-450) /uL Baso # (Auto) 0 (0-100) /uL PT 13.8 H (10.1-12.7) SECONDS INR 1.2 (0.9-1.3) APTT 29 (26.4-36.2) SECONDS Sodium 141 (137-145) mmol/L Potassium 4.0 (3.4-5.1) mmol/L Chloride 105 (98-107) mmol/L Carbon Dioxide 20 L (22-32) mmol/L BUN 17 (9-20) mg/dL Creatinine 0.70 (0.66-1.25) mg/dL Estimated GFR > 60.0 (>60) mL/min BUN/Creatinine Ratio 24.3 H (6-22) Glucose 139 H (70-100) mg/dL Calcium 9.6 (8.4-10.2) mg/dL Total Bilirubin 1.5 H (0.2-1.3) mg/dL AST 27 (17-59) IU/L ALT 47 (21-72) IU/L Alkaline Phosphatase 90 (38-126) U/L Total Protein 8.5 H (6.3-8.2) g/dL Albumin 5.1 H (3.5-5.0) g/dL Globulin 3.4 (1.7-4.1) g/dL Albumin/Globulin Ratio 1.5 (1.0-2.8) Lipase 49 (23-300) U/L Point of care testing: Urine Dip Bedside Urine Glucose Negative Bedside Urine Bilirubin - Negative Bedside Urine Ketone +++ 80 Urine Specific [place] 1.020 Bedside Urine Occult Blood - Negative Bedside Urine pH 6.5 Bedside Urine Protein +/- 15 Bedside Urine Urobilinogen - Negative Bedside Urine Nitrite - Negative Bedside Urine Leukocytes - Negative Esterase Discharge Plan Departure Patient Disposition: Home Clinical Impression: Nausea & vomiting, Abdominal pain Discharge Date/Time: 08/25/18 16:25 Interventions: ED Discharge Assessment Last Done: 08/25/18 16:25 Instructions: DI for Abdominal Pain-Adult, DI for Vomiting -- Adult Activity Restrictions/Additional Instructions: Please return as we talked about if you have acutely worsening symptoms again, or new symptoms such as fever. Otherwise, you can return home and rest. I have sent in a suppository form prescription of the medicine that seemed to help in the IV today, called Compazine, if you need for nausea. Please take it at the 1st sign that you are getting symptomatic again if needed. Please drink clear fluids today, and tomorrow you can start a bland diet, such as broth, white rice, applesauce, and bananas as tolerated. Please follow-up with your PCP for recheck in the next few days, and talk about follow-up with the GI specialist. Also, please try taking your omeprazole very regularly so that we can see whether that is helpful for you. Take 20 mg twice daily about 45 min before meals. Prescriptions: New prochlorperazine [Compazine] 25 mg suppository 25 mg IN Q12H PRN (Reason: nausea and vomiting) Qty: 12 RF: 0 No Action omeprazole 20 MG capsule,delayed release(DR/EC) 20 mg PO DAILY PRN (Reason: Nausea) Qty: 0 RF: 0 Referrals: Eric Sun MD [Primary Care Provider] -
--- NOTE | 2018-08-25 13:21 | ED_ITS ---
HPI - Abdominal Pain <Sarahy Swartz PA-C - Last Filed: 08/25/18 20:21> General Chief Complaint: Abdominal Pain Stated Complaint: severe nausea, cant hold anything down Time Seen by Provider: 08/25/18 13:03 Source: patient and family Mode of arrival: ambulatory Limitations: no limitations History of Present Illness HPI narrative: this 43-year-old male comes to ED with what he describes as a recurrence of his previous abdominal pain and nausea. He states that his symptoms started on Thursday with diarrhea and pain, so he did not realize this felt the same until the next day. Diarrhea had resolved by then, but he began to have persistent pain and nausea. He states he has been unable to keep down any food or fluids including when he tried to eat some oatmeal today. He states he probably has vomited dozen times today. He states that he is now vomiting just a little bit of fluid and bilious type material. He has not had any blood in the vomitus. He denies any fever, chills, sweats. He denies any urinary symptoms. He has not had a bowel movement since the diarrheal episodes on Thursday. He denies any chest pain or dyspnea. Denies any recent cough, upper respiratory symptoms or illness. he states he has had workup with GI a capsule study with no specific findings. Related Data Home Medications Medication Instructions Recorded Confirmed omeprazole 20 mg PO DAILY PRN #0 04/27/13 08/25/18 Previous Rx's Medication Instructions Recorded prochlorperazine [Compazine] 25 mg [place] Q12H PRN #12 each 08/25/18 Allergies Allergy/AdvReac Type Severity Reaction Status Date / Time No Known Drug Allergies Allergy Verified 08/25/18 12:18 Review of Systems <Sarahy Swartz PA-C - Last Filed: 08/25/18 20:21> Review of Systems ROS Unobtainable: All systems reviewed & are unremarkable except as noted in HPI and below Exam <Sarahy Swartz PA-C - Last Filed: 08/25/18 20:21> Narrative Exam Narrative: GENERAL APPEARANCE: Patient sitting comfortably, in no distress. HEENT: PERRL, EOMI, no scleral icterus, normal oropharynx NECK: Supple, no masses LUNGS: Clear to auscultation bilaterally. HEART: Rate and rhythm regular, normal S1 and S2, no S3 or S4. ABDOMEN: mildly distended, hypoactive bowel sounds present x 4 quadrants, no masses palpable, no hepatosplenomegaly. tender on the left side just proximal to the epigastrium up to the costal margin, most at the midclavicular line. No guarding or rebound, no CVAT EXTREMITIES: No edema DERMATOLOGIC: No jaundice or exanthem NEUROLOGIC: Alert and oriented with normal speech and coordination Initial Vital Signs Initial Vital Signs: Vital Signs Temperature 97.6 F 08/25/18 12:12 Pulse Rate 82 08/25/18 12:12 Respiratory Rate 14 08/25/18 12:12 Blood Pressure 162/103 H 08/25/18 12:12 Pulse Oximetry 100 08/25/18 12:12 <Sharifa Lyons MD - Last Filed: 09/02/18 08:59> Initial Vital Signs Initial Vital Signs: Vital Signs Temperature 97.6 F 08/25/18 12:12 Pulse Rate 82 08/25/18 12:12 Respiratory Rate 14 08/25/18 12:12 Blood Pressure 162/103 H 08/25/18 12:12 Pulse Oximetry 100 08/25/18 12:12 Course <Sarahy Swartz PA-C - Last Filed: 08/25/18 20:21> Additional Information: Patient is feeling much improved at the time of discharge and was sleeping comfortably. He feels like symptoms are consistent with his previous episodes that tend to resolve with a little time once he gets treated with IV fluids and medications and able to manage the nausea. He agreed to return if acutely worsening symptoms again, or new symptoms such as fever. He will follow up with PCP and we also talked about follow-up with GI specialist to determine whether further testing needed. Orders Ordered: Discontinued Medications Al Hydrox/Mg Hydrox/Simethicone 20 ml/ Lidocaine HCl 15 ml 0 ml PO NOW ONE Stop: 08/25/18 13:22 Last Admin: 08/25/18 14:56 Dose: 35 ml Sodium Chloride (Normal Saline 0.9%) 1,000 mls @ 1,000 mls/hr IV BOLUS ONE Stop: 08/25/18 13:20 Last Infusion: 08/25/18 14:12 Dose: 0 mls/hr Admin: 08/25/18 12:34 Dose: 1,000 mls/hr Sodium Chloride (Normal Saline 0.9%) 1,000 mls @ 1,000 mls/hr IV BOLUS ONE Stop: 08/25/18 14:35 Last Infusion: 08/25/18 16:08 Dose: 0 mls/hr Admin: 08/25/18 14:12 Dose: 1,000 mls/hr Ketorolac Tromethamine (Toradol) 30 mg IV NOW ONE Stop: 08/25/18 13:22 Last Admin: 08/25/18 13:26 Dose: 30 mg Morphine Sulfate (Morphine) 4 mg IV NOW ONE Stop: 08/25/18 13:22 Last Admin: 08/25/18 13:27 Dose: 4 mg Ondansetron HCl (Zofran) 4 mg IV NOW ONE Stop: 08/25/18 12:22 Last Admin: 08/25/18 12:34 Dose: 4 mg Pantoprazole Sodium (Protonix) 40 mg IV NOW ONE Stop: 08/25/18 13:22 Last Admin: 08/25/18 13:26 Dose: 40 mg Prochlorperazine (Compazine) 10 mg IV NOW ONE Stop: 08/25/18 13:35 Last Admin: 08/25/18 13:39 Dose: 10 mg Prochlorperazine (Compazine) 10 mg IV NOW ONE Stop: 08/25/18 13:37 Last Admin: 08/25/18 13:38 Dose: Not Given Vital Signs - 8 hr 08/25/18 13:31 08/25/18 13:38 08/25/18 13:39 Temperature Pulse Rate 72 80 80 Respiratory Rate 14 Blood Pressure 162/80 H 192/90 H Blood Pressure [Left Arm] 162/83 H Pulse Oximetry 100 08/25/18 15:03 08/25/18 16:05 08/25/18 16:25 Temperature 98.1 F Pulse Rate 97 H 96 H 96 H Respiratory Rate 22 18 18 Blood Pressure 111/67 Blood Pressure [Left Arm] 153/93 H 111/67 Pulse Oximetry 100 97 97 <Sharifa Lyons MD - Last Filed: 09/02/18 08:59> Orders Ordered: Discontinued Medications Al Hydrox/Mg Hydrox/Simethicone 20 ml/ Lidocaine HCl 15 ml 0 ml PO NOW ONE Stop: 08/25/18 13:22 Last Admin: 08/25/18 14:56 Dose: 35 ml Sodium Chloride (Normal Saline 0.9%) 1,000 mls @ 1,000 mls/hr IV BOLUS ONE Stop: 08/25/18 13:20 Last Infusion: 08/25/18 14:12 Dose: 0 mls/hr Admin: 08/25/18 12:34 Dose: 1,000 mls/hr Sodium Chloride (Normal Saline 0.9%) 1,000 mls @ 1,000 mls/hr IV BOLUS ONE Stop: 08/25/18 14:35 Last Infusion: 08/25/18 16:08 Dose: 0 mls/hr Admin: 08/25/18 14:12 Dose: 1,000 mls/hr Ketorolac Tromethamine (Toradol) 30 mg IV NOW ONE Stop: 08/25/18 13:22 Last Admin: 08/25/18 13:26 Dose: 30 mg Morphine Sulfate (Morphine) 4 mg IV NOW ONE Stop: 08/25/18 13:22 Last Admin: 08/25/18 13:27 Dose: 4 mg Ondansetron HCl (Zofran) 4 mg IV NOW ONE Stop: 08/25/18 12:22 Last Admin: 08/25/18 12:34 Dose: 4 mg Pantoprazole Sodium (Protonix) 40 mg IV NOW ONE Stop: 08/25/18 13:22 Last Admin: 08/25/18 13:26 Dose: 40 mg Prochlorperazine (Compazine) 10 mg IV NOW ONE Stop: 08/25/18 13:35 Last Admin: 08/25/18 13:39 Dose: 10 mg Prochlorperazine (Compazine) 10 mg IV NOW ONE Stop: 08/25/18 13:37 Last Admin: 08/25/18 13:38 Dose: Not Given Vital Signs - 8 hr 08/25/18 13:31 08/25/18 13:38 08/25/18 13:39 Temperature Pulse Rate 72 80 80 Respiratory Rate 14 Blood Pressure 162/80 H 192/90 H Blood Pressure [Left Arm] 162/83 H Pulse Oximetry 100 08/25/18 15:03 08/25/18 16:05 08/25/18 16:25 Temperature 98.1 F Pulse Rate 97 H 96 H 96 H Respiratory Rate 22 18 18 Blood Pressure 111/67 Blood Pressure [Left Arm] 153/93 H 111/67 Pulse Oximetry 100 97 97 MDM - Abdominal Pain <Sarahy Swartz PA-C - Last Filed: 08/25/18 20:21> Lab Data Attestation: I reviewed the patient's lab results. Result diagrams: 08/25/18 12:30 08/25/18 12:30 Lab Results 08/25/18 08/25/18 08/25/18 Range/Units 12:30 12:30 12:30 WBC 9.8 (4.5-11.0) X10^3/uL RBC 5.12 (4.5-5.9) X10^6/uL Hgb 16.4 (13.5-17.5) g/dL Hct 46.4 (41-53) % MCV 90.4 (80-100) fL MCH 31.9 (26-34) PG MCHC 35.3 (30-36) % RDW 13.3 (11.6-14.8) % Plt Count 296 (150-400) X10^3/uL Neut % (Auto) 90.1 H (50-75) % Lymph % (Auto) 7.1 L (25-40) % [place] % (Auto) 2.6 L (3-14) % Eos % (Auto) 0.0 L (2-4) % Baso % (Auto) 0.2 (0-2) % Neut # (Auto) 8800 H (5794-7474) /uL Lymph # (Auto) 700 L (8677-0924) /uL [place] # (Auto) 300 (0-900) /uL Eos # (Auto) 0 (0-450) /uL Baso # (Auto) 0 (0-100) /uL PT 13.8 H (10.1-12.7) SECONDS INR 1.2 (0.9-1.3) APTT 29 (26.4-36.2) SECONDS Sodium 141 (137-145) mmol/L Potassium 4.0 (3.4-5.1) mmol/L Chloride 105 (98-107) mmol/L Carbon Dioxide 20 L (22-32) mmol/L BUN 17 (9-20) mg/dL Creatinine 0.70 (0.66-1.25) mg/dL Estimated GFR > 60.0 (>60) mL/min BUN/Creatinine Ratio 24.3 H (6-22) Glucose 139 H (70-100) mg/dL Calcium 9.6 (8.4-10.2) mg/dL Total Bilirubin 1.5 H (0.2-1.3) mg/dL AST 27 (17-59) IU/L ALT 47 (21-72) IU/L Alkaline Phosphatase 90 (38-126) U/L Total Protein 8.5 H (6.3-8.2) g/dL Albumin 5.1 H (3.5-5.0) g/dL Globulin 3.4 (1.7-4.1) g/dL Albumin/Globulin Ratio 1.5 (1.0-2.8) Lipase 49 (23-300) U/L Point of care testing: Urine Dip Bedside Urine Glucose Negative Bedside Urine Bilirubin - Negative Bedside Urine Ketone +++ 80 Urine Specific [place] 1.020 Bedside Urine Occult Blood - Negative Bedside Urine pH 6.5 Bedside Urine Protein +/- 15 Bedside Urine Urobilinogen - Negative Bedside Urine Nitrite - Negative Bedside Urine Leukocytes - Negative Esterase Imaging Data Abdominal x-ray: Radiologist's impression: 12 Sarahy Swartz PA-C Find Patient Imaging ACTIVITY DATE EXAM STATUS AUTHOR 08/25/18 12:32 Signed Nino Toro [place] [id number] XRay Report Signed Patient: Rashaad Moffett OMR#: [id number] : 1975Acct:[id number] Age/Sex: 43 / MDate of Service: 08/25/18 Loc: ED Accession Number: [id number] Procedure: XR acute abdomen series Ordering Provider: Sharifa Lyons MD PROCEDURE: XR ACUTE ABDOMEN SERIES INDICATIONS: vomiting since mon, not passing gas, distended abd, LLQ pain TECHNIQUE: One view chest and two views of the abdomen were acquired. COMPARISON: None. FINDINGS: Surgical changes and devices: None. Chest: Lungs are clear. Heart size is normal. No pleural effusions. No pneumoperitoneum. Abdomen: Bowel gas pattern is normal. No suspicious calcifications. Visualized solid organ contours appear normal. Bones: No suspicious bony lesions. IMPRESSION: Normal bowel gas pattern, etiology of emesis is not seen. No free air found. Dictated by: Nino Toro M.D. on 08/25/2018 at 13:13 Approved by: Nino Toro M.D. on 08/25/2018 at 13:14 <Sharifa Lyons MD - Last Filed: 09/02/18 08:59> Lab Data Lab Results 08/25/18 08/25/18 08/25/18 Range/Units 12:30 12:30 12:30 WBC 9.8 (4.5-11.0) X10^3/uL RBC 5.12 (4.5-5.9) X10^6/uL Hgb 16.4 (13.5-17.5) g/dL Hct 46.4 (41-53) % MCV 90.4 (80-100) fL MCH 31.9 (26-34) PG MCHC 35.3 (30-36) % RDW 13.3 (11.6-14.8) % Plt Count 296 (150-400) X10^3/uL Neut % (Auto) 90.1 H (50-75) % Lymph % (Auto) 7.1 L (25-40) % [place] % (Auto) 2.6 L (3-14) % Eos % (Auto) 0.0 L (2-4) % Baso % (Auto) 0.2 (0-2) % Neut # (Auto) 8800 H (4790-7734) /uL Lymph # (Auto) 700 L (2986-6830) /uL [place] # (Auto) 300 (0-900) /uL Eos # (Auto) 0 (0-450) /uL Baso # (Auto) 0 (0-100) /uL PT 13.8 H (10.1-12.7) SECONDS INR 1.2 (0.9-1.3) APTT 29 (26.4-36.2) SECONDS Sodium 141 (137-145) mmol/L Potassium 4.0 (3.4-5.1) mmol/L Chloride 105 (98-107) mmol/L Carbon Dioxide 20 L (22-32) mmol/L BUN 17 (9-20) mg/dL Creatinine 0.70 (0.66-1.25) mg/dL Estimated GFR > 60.0 (>60) mL/min BUN/Creatinine Ratio 24.3 H (6-22) Glucose 139 H (70-100) mg/dL Calcium 9.6 (8.4-10.2) mg/dL Total Bilirubin 1.5 H (0.2-1.3) mg/dL AST 27 (17-59) IU/L ALT 47 (21-72) IU/L Alkaline Phosphatase 90 (38-126) U/L Total Protein 8.5 H (6.3-8.2) g/dL Albumin 5.1 H (3.5-5.0) g/dL Globulin 3.4 (1.7-4.1) g/dL Albumin/Globulin Ratio 1.5 (1.0-2.8) Lipase 49 (23-300) U/L Point of care testing: Urine Dip Bedside Urine Glucose Negative Bedside Urine Bilirubin - Negative Bedside Urine Ketone +++ 80 Urine Specific [place] 1.020 Bedside Urine Occult Blood - Negative Bedside Urine pH 6.5 Bedside Urine Protein +/- 15 Bedside Urine Urobilinogen - Negative Bedside Urine Nitrite - Negative Bedside Urine Leukocytes - Negative Esterase Discharge Plan Departure Patient Disposition: Home Clinical Impression: Nausea & vomiting, Abdominal pain Discharge Date/Time: 08/25/18 16:25 Interventions: ED Discharge Assessment Last Done: 08/25/18 16:25 Instructions: DI for Abdominal Pain-Adult, DI for Vomiting -- Adult Activity Restrictions/Additional Instructions: Please return as we talked about if you have acutely worsening symptoms again , or new symptoms such as fever. Otherwise, you can return home and rest. I have sent in a suppository form prescription of the medicine that seemed to help in the IV today, called Compazine, if you need for nausea. Please take it at the 1st sign that you are getting symptomatic again if needed. Please drink clear fluids today, and tomorrow you can start a bland diet, such as broth, white rice, applesauce, and bananas as tolerated. Please follow-up with your PCP for recheck in the next few days, and talk about follow-up with the GI specialist. Also, please try taking your omeprazole very regularly so that we can see whether that is helpful for you. Take 20 mg twice daily about 45 min before meals. Prescriptions: New prochlorperazine [Compazine] 25 mg suppository 25 mg [place] Q12H PRN (Reason: nausea and vomiting) Qty: 12 RF: 0 No Action omeprazole 20 MG capsule,delayed release(DR/EC) 20 mg PO DAILY PRN (Reason: Nausea) Qty: 0 RF: 0 Referrals: Eric Sun MD [Primary Care Provider] -
[2018-08-25] MEDS: KETOROLAC 60 MG/2 ML VIAL 30 MG IV (13:26)
[2018-08-25] MEDS: PANTOPRAZOLE 40 MG VIAL IV (13:26)
[2018-08-25] MEDS: MORPHINE 4 MG/ML INJ IV (13:27)
[2018-08-25] MEDS: PROCHLORPERAZINE 10 MG/2 ML VIAL IV (13:39)
[2018-08-25] MEDS: MAG HYDROX/ALUMINUM/SIMETH SUS 20 ML, LIDOCAINE VISCOUS 2% 15 ML PO (14:56)
== END 2018-08-25 16:25 | disposition home or self-care (01) ==
PROVIDERS: Emergency Medicine; Emergency Provider Internal Medicine; PCP Family Medicine
DX: R10.9 Unspecified abdominal pain (principal); R11.2 Nausea with vomiting, unspecified
CPT/HCPCS: 36591; 74022; 80053; 81003; 83690; 85025; 85610; 85730; 96361; 96374; 96375; 99283; 99284; C9113; J0780; J1885; J2270; J2405

== ENCOUNTER 2018-09-17 16:57 | Emergency (ER) | payer BC, SELFPAY ==
[2018-09-17 17:07] VITALS: BP 157/99; PULSE 83; RESP 16; TEMP 36.6; O2SAT 98; BMI 31.0
[2018-09-17] MEDS: ONDANSETRON 4 MG/2 ML INJ IV (17:31)
--- NOTE | 2018-09-17 17:40 | ED.ABDPAIN ---
HPI - Abdominal Pain <Sarahy Swartz PA-C - Last Filed: 09/17/18 22:06> General Chief Complaint: Abdominal Pain Stated Complaint: Stomach pain/nausea Time Seen by Provider: 09/17/18 17:40 Source: patient Mode of arrival: ambulatory Limitations: no limitations History of Present Illness HPI narrative: This 43-year-old male comes to ED due to nausea and vomiting with abdominal pain. He feels like this is the same as previous episodes he has had for years. He was seen here for same a couple of weeks ago and advised to follow up with his PCP but he has not done that yet. He states he has been taking his omeprazole regularly. He states he has been feeling generally well. He had 1 episode of vomiting a few days ago but then felt okay. He states he went to work at 4 this morning and had nausea, then started vomiting at 6:00 a.m. and has vomited countless times, unable to keep down any food or fluids today. He states he has some pain in the mid abdomen, thinks nausea and vomiting started 1st. He states that he had 2 episodes of diarrhea early this morning but none since. He had some diarrhea with the last episode also. He states that he ate [place] food last night and thinks that this cause symptoms, because he feels like there was a correlation with eating that in the past ( ate this as well and she is asymptomatic). He denies any new symptoms with this such as fever, cough or recent illness, urinary symptoms. Related Data Home Medications Medication Instructions Recorded Confirmed omeprazole 20 mg PO DAILY PRN #0 04/27/13 08/25/18 Previous Rx's Medication Instructions Recorded prochlorperazine [Compazine] 25 mg IN Q12H PRN #12 each 08/25/18 Allergies Allergy/AdvReac Type Severity Reaction Status Date / Time No Known Drug Allergies Allergy Verified 09/17/18 17:10 Review of Systems <Sarahy Swartz PA-C - Last Filed: 09/17/18 22:06> Review of Systems ROS Unobtainable: All systems reviewed & are unremarkable except as noted in HPI and below PFSH <Sarahy Swartz PA-C - Last Filed: 09/17/18 22:06> Medical History Chronic GERD (Chronic) Intermittent left upper quadrant abdominal pain (Chronic) Intermittent vomiting (Chronic) Family History Other Family history non-contributory Social History Smoking Status: Current every day smoker Exam <Sarahy Swartz PA-C - Last Filed: 09/17/18 22:06> Narrative Exam Narrative: GENERAL APPEARANCE: Patient appears uncomfortable but in NAD HEENT: PERRL, EOMI, no scleral icterus NECK: Supple LUNGS: Clear to auscultation bilaterally. HEART: Rate and rhythm regular, normal S1 and S2, no S3 or S4. ABDOMEN: Soft, nondistended, bowel sounds present x 4 quadrants, no masses palpable, no hepatosplenomegaly. Moderate tenderness midline epigastrium and mild left upper quadrant tenderness without guarding or rebound EXTREMITIES: No edema, no calf TTP DERMATOLOGIC: No jaundice or exanthem NEUROLOGIC: Alert and oriented with normal speech and coordination Initial Vital Signs Initial Vital Signs: Vital Signs Temperature 97.9 F 09/17/18 17:07 Pulse Rate 83 09/17/18 17:07 Respiratory Rate 16 09/17/18 17:07 Blood Pressure 157/99 H 09/17/18 17:07 Pulse Oximetry 98 09/17/18 17:07 <Eric Scales MD - Last Filed: 09/18/18 02:27> Initial Vital Signs Initial Vital Signs: Vital Signs Temperature 97.9 F 09/17/18 17:07 Pulse Rate 83 09/17/18 17:07 Respiratory Rate 16 09/17/18 17:07 Blood Pressure 157/99 H 09/17/18 17:07 Pulse Oximetry 98 09/17/18 17:07 Course <Sarahy Swartz PA-C - Last Filed: 09/17/18 22:06> Additional Information: Patient has long-standing recurrences of these symptoms, he feels like today was an exacerbation so we did not do imaging studies. He is feeling significantly improved prior to discharge, tolerating p.o.. He agrees to follow up with his PCP next week and also get set up for gastroenterology follow-up. He does use some THC, not clear whether this is associated with times where he does not use as symptoms are very longstanding. He agreed to return if any acutely worsening symptoms again. 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 That seems to be more effective for his nausea than Zofran. Orders Ordered: Discontinued Medications Al Hydrox/Mg Hydrox/Simethicone 20 ml/ Lidocaine HCl 15 ml 0 ml PO NOW ONE Stop: 09/17/18 17:54 Last Admin: 09/17/18 19:32 Dose: 35 ml Sodium Chloride (Normal Saline 0.9%) 1,000 mls @ 1,000 mls/hr IV BOLUS ONE Stop: 09/17/18 18:53 Last Infusion: 09/17/18 19:51 Dose: 0 mls/hr Admin: 09/17/18 18:02 Dose: 1,000 mls/hr Sodium Chloride (Normal Saline 0.9%) 1,000 mls @ 1,000 mls/hr IV BOLUS ONE Stop: 09/17/18 20:51 Last Infusion: 09/17/18 21:27 Dose: 0 mls/hr Admin: 09/17/18 19:55 Dose: 1,000 mls/hr Ketorolac Tromethamine (Toradol) 30 mg IV NOW ONE Stop: 09/17/18 17:54 Last Admin: 09/17/18 18:01 Dose: 30 mg Ondansetron HCl (Zofran) 4 mg IV NOW ONE Stop: 09/17/18 17:11 Last Admin: 09/17/18 17:31 Dose: 4 mg Pantoprazole Sodium (Protonix) 40 mg IV NOW ONE Stop: 09/17/18 17:54 Last Admin: 09/17/18 18:03 Dose: 40 mg Prochlorperazine (Compazine) 10 mg IV NOW ONE Stop: 09/17/18 17:54 Last Admin: 09/17/18 18:02 Dose: 10 mg Vital Signs - 8 hr 09/17/18 19:36 09/17/18 21:37 Pulse Rate 88 91 H Respiratory Rate 16 15 Blood Pressure [Left Arm] 141/89 H 122/71 Pulse Oximetry 99 98 <Eric Scales MD - Last Filed: 09/18/18 02:27> Orders Ordered: Discontinued Medications Al Hydrox/Mg Hydrox/Simethicone 20 ml/ Lidocaine HCl 15 ml 0 ml PO NOW ONE Stop: 09/17/18 17:54 Last Admin: 09/17/18 19:32 Dose: 35 ml Sodium Chloride (Normal Saline 0.9%) 1,000 mls @ 1,000 mls/hr IV BOLUS ONE Stop: 09/17/18 18:53 Last Infusion: 09/17/18 19:51 Dose: 0 mls/hr Admin: 09/17/18 18:02 Dose: 1,000 mls/hr Sodium Chloride (Normal Saline 0.9%) 1,000 mls @ 1,000 mls/hr IV BOLUS ONE Stop: 09/17/18 20:51 Last Infusion: 09/17/18 21:27 Dose: 0 mls/hr Admin: 09/17/18 19:55 Dose: 1,000 mls/hr Ketorolac Tromethamine (Toradol) 30 mg IV NOW ONE Stop: 09/17/18 17:54 Last Admin: 09/17/18 18:01 Dose: 30 mg Ondansetron HCl (Zofran) 4 mg IV NOW ONE Stop: 09/17/18 17:11 Last Admin: 09/17/18 17:31 Dose: 4 mg Pantoprazole Sodium (Protonix) 40 mg IV NOW ONE Stop: 09/17/18 17:54 Last Admin: 09/17/18 18:03 Dose: 40 mg Prochlorperazine (Compazine) 10 mg IV NOW ONE Stop: 09/17/18 17:54 Last Admin: 09/17/18 18:02 Dose: 10 mg Vital Signs - 8 hr 09/17/18 19:36 09/17/18 21:37 Pulse Rate 88 91 H Respiratory Rate 16 15 Blood Pressure [Left Arm] 141/89 H 122/71 Pulse Oximetry 99 98 MDM - Abdominal Pain <Sarahy Swartz PA-C - Last Filed: 09/17/18 22:06> Lab Data Result diagrams: 09/17/18 17:25 09/17/18 17:25 Lab Results 09/17/18 09/17/18 09/17/18 Range/Units 17:25 17:25 17:25 WBC 9.1 (4.5-11.0) X10^3/uL RBC 5.13 (4.5-5.9) X10^6/uL Hgb 16.0 (13.5-17.5) g/dL Hct 47.5 (41-53) % MCV 92.5 (80-100) fL MCH 31.2 (26-34) PG MCHC 33.8 (30-36) % RDW 13.6 (11.6-14.8) % Plt Count 295 (150-400) X10^3/uL Neut % (Auto) 80.2 H (50-75) % Lymph % (Auto) 14.3 L (25-40) % [place] % (Auto) 5.0 (3-14) % Eos % (Auto) 0.1 L (2-4) % Baso % (Auto) 0.4 (0-2) % Neut # (Auto) 7300 H (9899-1126) /uL Lymph # (Auto) 1300 (1244-8726) /uL [place] # (Auto) 500 (0-900) /uL Eos # (Auto) 0 (0-450) /uL Baso # (Auto) 0 (0-100) /uL PT 13.8 H (10.1-12.7) SECONDS INR 1.2 (0.9-1.3) APTT 31 D (26.4-36.2) SECONDS Sodium 140 (137-145) mmol/L Potassium 4.2 (3.4-5.1) mmol/L Chloride 105 (98-107) mmol/L Carbon Dioxide 21 L (22-32) mmol/L BUN 14 (9-20) mg/dL Creatinine 0.70 (0.66-1.25) mg/dL Estimated GFR > 60.0 (>60) mL/min BUN/Creatinine Ratio 20.0 (6-22) Glucose 113 H (70-100) mg/dL Calcium 9.4 (8.4-10.2) mg/dL Total Bilirubin 1.7 H (0.2-1.3) mg/dL AST 30 (17-59) IU/L ALT 41 (21-72) IU/L Alkaline Phosphatase 78 (38-126) U/L Total Protein 8.3 H (6.3-8.2) g/dL Albumin 4.9 (3.5-5.0) g/dL Globulin 3.4 (1.7-4.1) g/dL Albumin/Globulin Ratio 1.4 (1.0-2.8) Lipase 42 (23-300) U/L Point of care testing: Urine Dip Bedside Urine Glucose Negative Bedside Urine Bilirubin - Negative Bedside Urine Ketone +++ 80 Urine Specific [place] 1.030 Bedside Urine Occult Blood - Negative Bedside Urine pH 6.0 Bedside Urine Protein + 30 Bedside Urine Urobilinogen +/- 1mg Bedside Urine Nitrite - Negative Bedside Urine Leukocytes - Negative Esterase <Eric Scales MD - Last Filed: 09/18/18 02:27> Lab Data Lab Results 09/17/18 09/17/18 09/17/18 Range/Units 17:25 17:25 17:25 WBC 9.1 (4.5-11.0) X10^3/uL RBC 5.13 (4.5-5.9) X10^6/uL Hgb 16.0 (13.5-17.5) g/dL Hct 47.5 (41-53) % MCV 92.5 (80-100) fL MCH 31.2 (26-34) PG MCHC 33.8 (30-36) % RDW 13.6 (11.6-14.8) % Plt Count 295 (150-400) X10^3/uL Neut % (Auto) 80.2 H (50-75) % Lymph % (Auto) 14.3 L (25-40) % [place] % (Auto) 5.0 (3-14) % Eos % (Auto) 0.1 L (2-4) % Baso % (Auto) 0.4 (0-2) % Neut # (Auto) 7300 H (2774-1371) /uL Lymph # (Auto) 1300 (0143-5460) /uL [place] # (Auto) 500 (0-900) /uL Eos # (Auto) 0 (0-450) /uL Baso # (Auto) 0 (0-100) /uL PT 13.8 H (10.1-12.7) SECONDS INR 1.2 (0.9-1.3) APTT 31 D (26.4-36.2) SECONDS Sodium 140 (137-145) mmol/L Potassium 4.2 (3.4-5.1) mmol/L Chloride 105 (98-107) mmol/L Carbon Dioxide 21 L (22-32) mmol/L BUN 14 (9-20) mg/dL Creatinine 0.70 (0.66-1.25) mg/dL Estimated GFR > 60.0 (>60) mL/min BUN/Creatinine Ratio 20.0 (6-22) Glucose 113 H (70-100) mg/dL Calcium 9.4 (8.4-10.2) mg/dL Total Bilirubin 1.7 H (0.2-1.3) mg/dL AST 30 (17-59) IU/L ALT 41 (21-72) IU/L Alkaline Phosphatase 78 (38-126) U/L Total Protein 8.3 H (6.3-8.2) g/dL Albumin 4.9 (3.5-5.0) g/dL Globulin 3.4 (1.7-4.1) g/dL Albumin/Globulin Ratio 1.4 (1.0-2.8) Lipase 42 (23-300) U/L Point of care testing: Urine Dip Bedside Urine Glucose Negative Bedside Urine Bilirubin - Negative Bedside Urine Ketone +++ 80 Urine Specific [place] 1.030 Bedside Urine Occult Blood - Negative Bedside Urine pH 6.0 Bedside Urine Protein + 30 Bedside Urine Urobilinogen +/- 1mg Bedside Urine Nitrite - Negative Bedside Urine Leukocytes - Negative Esterase Discharge Plan Departure Patient Disposition: Home Clinical Impression: Nausea & vomiting Qualifiers: Vomiting type: unspecified Vomiting Intractability: non-intractable Qualified Code(s): R11.2 - Nausea with vomiting, unspecified Discharge Date/Time: 09/17/18 22:08 Interventions: ED Discharge Assessment Last Done: 09/17/18 22:07 Instructions: DI for Nausea -- Adult Activity Restrictions/Additional Instructions: Since you are feeling better, you can return home and rest tonight. Continue clear fluids and try to eat small amounts of bland food every couple of hours over the weekend and you can gradually resume your normal diet. Please be sure to follow up with your PCP next week and get gastroenterology follow-up arranged. Track whether you have any correlation in your symptoms to marijuana use, or when you skip that. Return as we talked about if you are feeling acutely worse again. Continue usual medicines at home, and please feel your prescription for Compazine suppositories. You may wish to call the pharmacy 1st as they may need to fill the prescription again. Prescriptions: No Action omeprazole 20 MG capsule,delayed release(DR/EC) 20 mg PO DAILY PRN (Reason: Nausea) Qty: 0 RF: 0 prochlorperazine [Compazine] 25 mg suppository 25 mg IN Q12H PRN (Reason: nausea and vomiting) Qty: 12 RF: 0 Referrals: Eric Sun MD [Primary Care Provider] - <Eric Scales MD - Last Filed: 09/18/18 02:27> [facility]ign [facility] I was in the ER at the time this patient's care. I was available for consultation or to see the patient directly if needed. I agree with the assessment and treatment plan.
[2018-09-17 17:49] LABS: INR 1.2 (0.9-1.3); Prothrombin Time 13.8 SECONDS (10.1-12.7)
[2018-09-17 17:51] LABS: Add Manual Diff / Slide Review NO; Basophils Absolute Auto 0 /uL (0-100); Basophils Percent Auto 0.4 % (0-2); Eosinophils Absolute Auto 0 /uL (0-450); Eosinophils Percent Auto 0.1 % (2-4); Hematocrit 47.5 % (41-53); Lymphocytes Absolute Auto 1300 /uL (1100-4500); Lymphocytes Percent Auto 14.3 % (25-40); Mean Corpuscular HGB Conc 33.8 % (30-36); Mean Corpuscular Hemoglobin 31.2 PG (26-34); Mean Corpuscular Volume 92.5 fL (80-100); Monocytes Absolute Auto 500 /uL (0-900); Neutrophils Absolute Auto 7300 /uL (1500-7000); Neutrophils Percent Auto 80.2 % (50-75); PTT Partial Thromboplastin Tim 31 SECONDS (26.4-36.2); Platelet Count 295 X10^3/uL (150-400); Red Blood Cell Count 5.13 X10^6/uL (4.5-5.9); Red Cell Distribution Width 13.6 % (11.6-14.8); White Blood Cell Count 9.1 X10^3/uL (4.5-11.0)
[2018-09-17 17:53] LABS: Alanine Aminotransferase 41 IU/L (21-72); Albumin 4.9 g/dL (3.5-5.0); Albumin Globulin Ratio 1.4 (1.0-2.8); Alkaline Phosphatase 78 U/L (38-126); Aspartate Aminotransferase 30 IU/L (17-59); Bilirubin Total 1.7 mg/dL (0.2-1.3); Blood Urea Nitrogen 14 mg/dL (9-20); Calcium 9.4 mg/dL (8.4-10.2); Carbon Dioxide 21 mmol/L (22-32); Chloride 105 mmol/L (98-107); Estimated Glomerular Filt Rate > 60.0 mL/min (>60); Globulin 3.4 g/dL (1.7-4.1); Glucose 113 mg/dL (70-100); Lipase 42 U/L (23-300); Sodium 140 mmol/L (137-145); Total Protein 8.3 g/dL (6.3-8.2)
[2018-09-17 17:58] LABS: HEMOLYSIS 60 (0-50); Potassium 4.2 mmol/L (3.4-5.1)
[2018-09-17] MEDS: KETOROLAC 60 MG/2 ML VIAL 30 MG IV (18:01)
--- NOTE | 2018-09-17 18:01 | ED_ITS ---
HPI - Abdominal Pain <Sarahy Swartz PA-C - Last Filed: 09/17/18 22:06> General Chief Complaint: Abdominal Pain Stated Complaint: Stomach pain/nausea Time Seen by Provider: 09/17/18 17:40 Source: patient Mode of arrival: ambulatory Limitations: no limitations History of Present Illness HPI narrative: This 43-year-old male comes to ED due to nausea and vomiting with abdominal pain. He feels like this is the same as previous episodes he has had for years. He was seen here for same a couple of weeks ago and advised to follow up with his PCP but he has not done that yet. He states he has been taking his omeprazole regularly. He states he has been feeling generally well. He had 1 episode of vomiting a few days ago but then felt okay. He states he went to work at 4 this morning and had nausea, then started vomiting at 6:00 a.m. and has vomited countless times, unable to keep down any food or fluids today. He states he has some pain in the mid abdomen, thinks nausea and vomiti ng started 1st. He states that he had 2 episodes of diarrhea early this morning but none since. He had some diarrhea with the last episode also. He states that he ate [place] food last night and thinks that this cause symptoms, because he feels like there was a correlation with eating that in the past ( ate this as well and she is asymptomatic). He denies any new symptoms with this such as fever, cough or recent illness, urinary symptoms. Related Data Home Medications Medication Instructions Recorded Confirmed omeprazole 20 mg PO DAILY PRN #0 04/27/13 08/25/18 Previous Rx's Medication Instructions Recorded prochlorperazine [Compazine] 25 mg CA Q12H PRN #12 each 08/25/18 Allergies Allergy/AdvReac Type Severity Reaction Status Date / Time No Known Drug Allergies Allergy Verified 09/17/18 17:10 Review of Systems <Sarahy Swartz PA-C - Last Filed: 09/17/18 22:06> Review of Systems ROS Unobtainable: All systems reviewed & are unremarkable except as noted in HPI and below PFSH <Sarahy Swartz PA-C - Last Filed: 09/17/18 22:06> Medical History Chronic GERD (Chronic) Intermittent left upper quadrant abdominal pain (Chronic) Intermittent vomiting (Chronic) Family History Other Family history non-contributory Social History Smoking Status: Current every day smoker Exam <Sarahy Swartz PA-C - Last Filed: 09/17/18 22:06> Narrative Exam Narrative: GENERAL APPEARANCE: Patient appears uncomfortable but in NAD HEENT: PERRL, EOMI, no scleral icterus NECK: Supple LUNGS: Clear to auscultation bilaterally. HEART: Rate and rhythm regular, normal S1 and S2, no S3 or S4. ABDOMEN: Soft, nondistended, bowel sounds present x 4 quadrants, no masses palpable, no hepatosplenomegaly. Moderate tenderness midline epigastrium and mild left upper quadrant tenderness without guarding or rebound EXTREMITIES: No edema, no calf TTP DERMATOLOGIC: No jaundice or exanthem NEUROLOGIC: Alert and oriented with normal speech and coordination Initial Vital Signs Initial Vital Signs: Vital Signs Temperature 97.9 F 09/17/18 17:07 Pulse Rate 83 09/17/18 17:07 Respiratory Rate 16 09/17/18 17:07 Blood Pressure 157/99 H 09/17/18 17:07 Pulse Oximetry 98 09/17/18 17:07 <Eric Scales MD - Last Filed: 09/18/18 02:27> Initial Vital Signs Initial Vital Signs: Vital Signs Temperature 97.9 F 09/17/18 17:07 Pulse Rate 83 09/17/18 17:07 Respiratory Rate 16 09/17/18 17:07 Blood Pressure 157/99 H 09/17/18 17:07 Pulse Oximetry 98 09/17/18 17:07 Course <Sarahy Swartz PA-C - Last Filed: 09/17/18 22:06> Additional Information: Patient has long-standing recurrences of these symptoms, he feels like today was an exacerbation so we did not do imaging studies. He is feeling significantly improved prior to discharge, tolerating p.o.. He agrees to follow up with his PCP next week and also get set up for gastroenterology follow-up. He does use some THC, not clear whether this is associated with times where he does not use as symptoms are very longstanding. He agreed to return if any acutely worsening symptoms again. 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 That seems to be more effective for his nausea than Zofran. Orders Ordered: Discontinued Medications Al Hydrox/Mg Hydrox/Simethicone 20 ml/ Lidocaine HCl 15 ml 0 ml PO NOW ONE Stop: 09/17/18 17:54 Last Admin: 09/17/18 19:32 Dose: 35 ml Sodium Chloride (Normal Saline 0.9%) 1,000 mls @ 1,000 mls/hr IV BOLUS ONE Stop: 09/17/18 18:53 Last Infusion: 09/17/18 19:51 Dose: 0 mls/hr Admin: 09/17/18 18:02 Dose: 1,000 mls/hr Sodium Chloride (Normal Saline 0.9%) 1,000 mls @ 1,000 mls/hr IV BOLUS ONE Stop: 09/17/18 20:51 Last Infusion: 09/17/18 21:27 Dose: 0 mls/hr Admin: 09/17/18 19:55 Dose: 1,000 mls/hr Ketorolac Tromethamine (Toradol) 30 mg IV NOW ONE Stop: 09/17/18 17:54 Last Admin: 09/17/18 18:01 Dose: 30 mg Ondansetron HCl (Zofran) 4 mg IV NOW ONE Stop: 09/17/18 17:11 Last Admin: 09/17/18 17:31 Dose: 4 mg Pantoprazole Sodium (Protonix) 40 mg IV NOW ONE Stop: 09/17/18 17:54 Last Admin: 09/17/18 18:03 Dose: 40 mg Prochlorperazine (Compazine) 10 mg IV NOW ONE Stop: 09/17/18 17:54 Last Admin: 09/17/18 18:02 Dose: 10 mg Vital Signs - 8 hr 09/17/18 19:36 09/17/18 21:37 Pulse Rate 88 91 H Respiratory Rate 16 15 Blood Pressure [Left Arm] 141/89 H 122/71 Pulse Oximetry 99 98 <Eric Scales MD - Last Filed: 09/18/18 02:27> Orders Ordered: Discontinued Medications Al Hydrox/Mg Hydrox/Simethicone 20 ml/ Lidocaine HCl 15 ml 0 ml PO NOW ONE Stop: 09/17/18 17:54 Last Admin: 09/17/18 19:32 Dose: 35 ml Sodium Chloride (Normal Saline 0.9%) 1,000 mls @ 1,000 mls/hr IV BOLUS ONE Stop: 09/17/18 18:53 Last Infusion: 09/17/18 19:51 Dose: 0 mls/hr Admin: 09/17/18 18:02 Dose: 1,000 mls/hr Sodium Chloride (Normal Saline 0.9%) 1,000 mls @ 1,000 mls/hr IV BOLUS ONE Stop: 09/17/18 20:51 Last Infusion: 09/17/18 21:27 Dose: 0 mls/hr Admin: 09/17/18 19:55 Dose: 1,000 mls/hr Ketorolac Tromethamine (Toradol) 30 mg IV NOW ONE Stop: 09/17/18 17:54 Last Admin: 09/17/18 18:01 Dose: 30 mg Ondansetron HCl (Zofran) 4 mg IV NOW ONE Stop: 09/17/18 17:11 Last Admin: 09/17/18 17:31 Dose: 4 mg Pantoprazole Sodium (Protonix) 40 mg IV NOW ONE Stop: 09/17/18 17:54 Last Admin: 09/17/18 18:03 Dose: 40 mg Prochlorperazine (Compazine) 10 mg IV NOW ONE Stop: 09/17/18 17:54 Last Admin: 09/17/18 18:02 Dose: 10 mg Vital Signs - 8 hr 09/17/18 19:36 09/17/18 21:37 Pulse Rate 88 91 H Respiratory Rate 16 15 Blood Pressure [Left Arm] 141/89 H 122/71 Pulse Oximetry 99 98 MDM - Abdominal Pain <Sarahy Swartz PA-C - Last Filed: 09/17/18 22:06> Lab Data Result diagrams: 09/17/18 17:25 09/17/18 17:25 Lab Results 09/17/18 09/17/18 09/17/18 Range/Units 17:25 17:25 17:25 WBC 9.1 (4.5-11.0) X10^3/uL RBC 5.13 (4.5-5.9) X10^6/uL Hgb 16.0 (13.5-17.5) g/dL Hct 47.5 (41-53) % MCV 92.5 (80-100) fL MCH 31.2 (26-34) PG MCHC 33.8 (30-36) % RDW 13.6 (11.6-14.8) % Plt Count 295 (150-400) X10^3/uL Neut % (Auto) 80.2 H (50-75) % Lymph % (Auto) 14.3 L (25-40) % [place] % (Auto) 5.0 (3-14) % Eos % (Auto) 0.1 L (2-4) % Baso % (Auto) 0.4 (0-2) % Neut # (Auto) 7300 H (7673-8111) /uL Lymph # (Auto) 1300 (9667-4403) /uL [place] # (Auto) 500 (0-900) /uL Eos # (Auto) 0 (0-450) /uL Baso # (Auto) 0 (0-100) /uL PT 13.8 H (10.1-12.7) SECONDS INR 1.2 (0.9-1.3) APTT 31 D (26.4-36.2) SECONDS Sodium 140 (137-145) mmol/L Potassium 4.2 (3.4-5.1) mmol/L Chloride 105 (98-107) mmol/L Carbon Dioxide 21 L (22-32) mmol/L BUN 14 (9-20) mg/dL Creatinine 0.70 (0.66-1.25) mg/dL Estimated GFR > 60.0 (>60) mL/min BUN/Creatinine Ratio 20.0 (6-22) Glucose 113 H (70-100) mg/dL Calcium 9.4 (8.4-10.2) mg/dL Total Bilirubin 1.7 H (0.2-1.3) mg/dL AST 30 (17-59) IU/L ALT 41 (21-72) IU/L Alkaline Phosphatase 78 (38-126) U/L Total Protein 8.3 H (6.3-8.2) g/dL Albumin 4.9 (3.5-5.0) g/dL Globulin 3.4 (1.7-4.1) g/dL Albumin/Globulin Ratio 1.4 (1.0-2.8) Lipase 42 (23-300) U/L Point of care testing: Urine Dip Bedside Urine Glucose Negative Bedside Urine Bilirubin - Negative Bedside Urine Ketone +++ 80 Urine Specific [place] 1.030 Bedside Urine Occult Blood - Negative Bedside Urine pH 6.0 Bedside Urine Protein + 30 Bedside Urine Urobilinogen +/- 1mg Bedside Urine Nitrite - Negative Bedside Urine Leukocytes - Negative Esterase <Eric Scales MD - Last Filed: 09/18/18 02:27> Lab Data Lab Results 09/17/18 09/17/18 09/17/18 Range/Units 17:25 17:25 17:25 WBC 9.1 (4.5-11.0) X10^3/uL RBC 5.13 (4.5-5.9) X10^6/uL Hgb 16.0 (13.5-17.5) g/dL Hct 47.5 (41-53) % MCV 92.5 (80-100) fL MCH 31.2 (26-34) PG MCHC 33.8 (30-36) % RDW 13.6 (11.6-14.8) % Plt Count 295 (150-400) X10^3/uL Neut % (Auto) 80.2 H (50-75) % Lymph % (Auto) 14.3 L (25-40) % [place] % (Auto) 5.0 (3-14) % Eos % (Auto) 0.1 L (2-4) % Baso % (Auto) 0.4 (0-2) % Neut # (Auto) 7300 H (7632-6843) /uL Lymph # (Auto) 1300 (3037-9933) /uL [place] # (Auto) 500 (0-900) /uL Eos # (Auto) 0 (0-450) /uL Baso # (Auto) 0 (0-100) /uL PT 13.8 H (10.1-12.7) SECONDS INR 1.2 (0.9-1.3) APTT 31 D (26.4-36.2) SECONDS Sodium 140 (137-145) mmol/L Potassium 4.2 (3.4-5.1) mmol/L Chloride 105 (98-107) mmol/L Carbon Dioxide 21 L (22-32) mmol/L BUN 14 (9-20) mg/dL Creatinine 0.70 (0.66-1.25) mg/dL Estimated GFR > 60.0 (>60) mL/min BUN/Creatinine Ratio 20.0 (6-22) Glucose 113 H (70-100) mg/dL Calcium 9.4 (8.4-10.2) mg/dL Total Bilirubin 1.7 H (0.2-1.3) mg/dL AST 30 (17-59) IU/L ALT 41 (21-72) IU/L Alkaline Phosphatase 78 (38-126) U/L Total Protein 8.3 H (6.3-8.2) g/dL Albumin 4.9 (3.5-5.0) g/dL Globulin 3.4 (1.7-4.1) g/dL Albumin/Globulin Ratio 1.4 (1.0-2.8) Lipase 42 (23-300) U/L Point of care testing: Urine Dip Bedside Urine Glucose Negative Bedside Urine Bilirubin - Negative Bedside Urine Ketone +++ 80 Urine Specific [place] 1.030 Bedside Urine Occult Blood - Negative Bedside Urine pH 6.0 Bedside Urine Protein + 30 Bedside Urine Urobilinogen +/- 1mg Bedside Urine Nitrite - Negative Bedside Urine Leukocytes - Negative Esterase Discharge Plan Departure Patient Disposition: Home Clinical Impression: Nausea & vomiting Qualifiers: Vomiting type: unspecified Vomiting Intractability: non-intractable Qualified Code(s): R11.2 - Nausea with vomiting, unspecified Discharge Date/Time: 09/17/18 22:08 Interventions: ED Discharge Assessment Last Done: 09/17/18 22:07 Instructions: DI for Nausea -- Adult Activity Restrictions/Additional Instructions: Since you are feeling better, you can return home and rest tonight. Continue clear fluids and try to eat small amounts of bland food every couple of hours over the weekend and you can gradually resume your normal diet. Please be sure to follow up with your PCP next week and get gastroenterology follow-up arranged. Track whether you have any correlation in your symptoms to marijuana use, or when you skip that. Return as we talked about if you are feeling acutely worse again. Continue usual medicines at home, and please feel your prescription for Compazine suppositories. You may wish to call the pharmacy 1st as they may need to fill the prescription again. Prescriptions: No Action omeprazole 20 MG capsule,delayed release(DR/EC) 20 mg PO DAILY PRN (Reason: Nausea) Qty: 0 RF: 0 prochlorperazine [Compazine] 25 mg suppository 25 mg [place] Q12H PRN (Reason: nausea and vomiting) Qty: 12 RF: 0 Referrals: Eric Sun MD [Primary Care Provider] - <Eric Scales MD - Last Filed: 09/18/18 02:27> Cosign ED Attending Cosignature Attestation: I was in the ER at the time this patient's care. I was available for consultation or to see the patient directly if needed. I agree with the assessment and treatment plan.
[2018-09-17 18:02] VITALS: BP 121/72; PULSE 92
[2018-09-17] MEDS: PROCHLORPERAZINE 10 MG/2 ML VIAL IV (18:02)
[2018-09-17] MEDS: SODIUM CHLORIDE 0.9% 1,000 ML 1000 ML IV ×2 (18:02→19:55)
[2018-09-17] MEDS: PANTOPRAZOLE 40 MG VIAL IV (18:03)
[2018-09-17] MEDS: MAG HYDROX/ALUMINUM/SIMETH SUS 20 ML, LIDOCAINE VISCOUS 2% 15 ML PO (19:32)
[2018-09-17 19:36] VITALS: BP 141/89; PULSE 88; RESP 16; O2SAT 99
[2018-09-17 21:37] VITALS: BP 122/71; PULSE 91; RESP 15; O2SAT 98
== END 2018-09-17 22:08 | disposition home or self-care (01) ==
PROVIDERS: Emergency Medicine; Emergency Provider Internal Medicine; PCP Family Medicine
DX: R11.2 Nausea with vomiting, unspecified (principal)
CPT/HCPCS: 36591; 80053; 81003; 83690; 85025; 85610; 85730; 96374; 96375; 99283; 99284; C9113; J0780; J1885; J2405

== ENCOUNTER 2019-02-01 04:31 | Emergency (ER) | payer BC, SELFPAY ==
[2019-02-01 04:35] VITALS: BP 157/109; PULSE 74; RESP 14; TEMP 36.6; O2SAT 99; BMI 31.0
[2019-02-01] MEDS: SODIUM CHLORIDE 0.9% 1,000 ML 1000 ML IV (04:39)
--- NOTE | 2019-02-01 04:39 | ED.ABDPAIN ---
HPI - Abdominal Pain General Chief Complaint: Abdominal Pain Stated Complaint: nausea, severe pain left side Time Seen by Provider: 02/01/19 04:32 Source: patient Mode of arrival: ambulatory Limitations: no limitations History of Present Illness HPI narrative: 43-year-old male. With a known history of abdominal pain and nausea and vomiting. Has been to the emergency department in the past for these similar symptoms. He reports that approximately 4 days ago he had the onset of left-sided abdominal pain and nausea vomiting. He states it has been consistent since then. He states it feels very much like his prior episodes. No diarrhea. No fevers. States he has seen GI in the past but ?not recently ?he states that ?they do not know what's going on ? Related Data Home Medications Medication Instructions Recorded Confirmed omeprazole 20 mg PO DAILY PRN #0 04/27/13 08/25/18 Previous Rx's Medication Instructions Recorded prochlorperazine [Compazine] 25 mg RI Q12H PRN #12 each 08/25/18 Allergies Allergy/AdvReac Type Severity Reaction Status Date / Time No Known Drug Allergies Allergy Verified 09/17/18 17:10 Review of Systems Constitutional Denies fever(s) and Denies headache(s) ENT Ears, Nose, Mouth, and Throat: Denies headache(s) Cardiovascular Denies chest pain and Denies dyspnea Respiratory Denies dyspnea Gastrointestinal Gastrointestinal: Reports abdominal pain, Denies change in stool character, Reports nausea and Reports vomiting Genitourinary Denies dysuria Musculoskeletal Denies myalgias and Denies arthralgias Integumentary/Breasts Denies rash Neurologic Denies headache(s) Hematologic/Lymphatic Denies easy bleeding and Denies easy bruising [facility] Medical History Chronic GERD (Chronic) Intermittent left upper quadrant abdominal pain (Chronic) Intermittent vomiting (Chronic) Social History Smoking Status: Current every day smoker Exam Initial Vital Signs Initial Vital Signs: Vital Signs Temperature 97.9 F 02/01/19 04:35 Pulse Rate 74 02/01/19 04:35 Respiratory Rate 14 02/01/19 04:35 Blood Pressure 157/109 H 02/01/19 04:35 Pulse Oximetry 99 02/01/19 04:35 Const General: cooperative, well developed, well groomed and No acute distress Orientation: alert, awake and oriented x3 HENMT Head: normal to inspection and normocephalic Resp Effort & Inspection: normal respiratory effort Auscultation: clear to auscultation bilaterally Cardio Rate: regular rate Rhythm: regular rhythm GI Inspection: non-distended Palpation: soft, No firm and tender (Left side abdomen) Skin Lesions: no lesions Rashes: no rashes Neuro General: alert, awake and oriented x3 Cognition: normal cognition Speech: speech normal Gait: normal gait Extrem General: normal to inspection and capillary refill normal Psych Appearance: grossly normal and well kempt Course Orders Ordered: ED Orders 02/01/19 04:42 Complete Blood Count AUTO DIFF Stat Comprehensive Metabolic Panel Stat Lipase Stat Discontinued Medications Sodium Chloride (Normal Saline 0.9%) 1,000 mls @ 1,000 mls/hr IV BOLUS ONE Stop: 02/01/19 05:34 Last Infusion: 02/01/19 05:38 Dose: 0 mls/hr Admin: 02/01/19 04:39 Dose: 1,000 mls/hr Ketorolac Tromethamine (Toradol) 30 mg IV NOW ONE Stop: 02/01/19 04:58 Last Admin: 02/01/19 04:59 Dose: 30 mg Metoclopramide HCl (Reglan) 10 mg IV NOW ONE Stop: 02/01/19 05:26 Last Admin: 02/01/19 05:35 Dose: 10 mg Pantoprazole Sodium (Protonix) 40 mg IV NOW ONE Stop: 02/01/19 04:40 Last Admin: 02/01/19 04:41 Dose: 40 mg Prochlorperazine (Compazine) 10 mg IV NOW ONE Stop: 02/01/19 04:37 Last Admin: 02/01/19 04:40 Dose: 10 mg Vital Signs - 8 hr 02/01/19 04:35 02/01/19 04:40 02/01/19 05:36 Temperature 97.9 F Pulse Rate 74 77 76 Respiratory Rate 14 16 Blood Pressure 157/109 H 157/109 H Blood Pressure [Right Arm] 168/100 H Pulse Oximetry 99 99 02/01/19 06:01 Temperature 98.5 F Pulse Rate 76 Respiratory Rate 16 Blood Pressure Blood Pressure [Right Arm] 177/97 H Pulse Oximetry 100 MDM - Abdominal Pain Lab Data Attestation: I reviewed the patient's lab results. Result diagrams: 02/01/19 04:42 02/01/19 04:42 Lab Results 02/01/19 02/01/19 Range/Units 04:42 04:42 WBC 11.9 H (4.5-11.0) X10^3/uL RBC 5.20 (4.5-5.9) X10^6/uL Hgb 16.3 (13.5-17.5) g/dL Hct 47.5 (41-53) % MCV 91.4 (80-100) fL MCH 31.3 (26-34) PG MCHC 34.2 (30-36) % RDW 13.1 (11.6-14.8) % Plt Count 284 (150-400) X10^3/uL Neut % (Auto) 75.2 H (50-75) % Lymph % (Auto) 18.6 L (25-40) % [place] % (Auto) 5.7 (3-14) % Eos % (Auto) 0.2 L (2-4) % Baso % (Auto) 0.3 (0-2) % Neut # (Auto) 8900 H (8687-1120) /uL Lymph # (Auto) 2200 (0536-4996) /uL [place] # (Auto) 700 (0-900) /uL Eos # (Auto) 0 (0-450) /uL Baso # (Auto) 0 (0-100) /uL Sodium 140 (137-145) mmol/L Potassium 3.9 (3.4-5.1) mmol/L Chloride 106 (98-107) mmol/L Carbon Dioxide 22 (22-32) mmol/L BUN 18 (9-20) mg/dL Creatinine 0.80 (0.66-1.25) mg/dL Estimated GFR > 60.0 (>60) mL/min BUN/Creatinine Ratio 22.5 H (6-22) Glucose 127 H (70-100) mg/dL Calcium 9.9 (8.4-10.2) mg/dL Total Bilirubin 2.0 H (0.2-1.3) mg/dL AST 28 (17-59) IU/L ALT 45 (21-72) IU/L Alkaline Phosphatase 83 (38-126) U/L Total Protein 7.9 (6.3-8.2) g/dL Albumin 4.8 (3.5-5.0) g/dL Globulin 3.1 (1.7-4.1) g/dL Albumin/Globulin Ratio 1.5 (1.0-2.8) Lipase 57 (23-300) U/L MDM Narrative Medical decision making narrative: Patient with improvement of vomiting and abdominal pain with the medications. IV Compazine followed by Reglan seem to improve his symptoms tremendously. Toradol seemed to improve the abdominal pain. We discussed the home medications. We discussed return precautions and follow-up instructions. He expressed understanding and agreement with plan. Discharge Plan Departure Patient Disposition: Home Clinical Impression: Nausea Abdominal pain Qualifiers: Abdominal location: left upper quadrant Qualified Code(s): R10.12 - Left upper quadrant pain Instructions: Nausea (Alternative Therapy), DI for Nausea -- Adult Activity Restrictions/Additional Instructions: Continue to use the nausea medications as directed. Contact your primary doctor today and also your GI provider for follow-up. Return to the emergency department for any new or worsening symptoms Prescriptions: No Action omeprazole 20 MG capsule,delayed release(DR/EC) 20 mg PO DAILY PRN (Reason: Nausea) Qty: 0 RF: 0 prochlorperazine [Compazine] 25 mg suppository 25 mg RI Q12H PRN (Reason: nausea and vomiting) Qty: 12 RF: 0 Referrals: Eric Sun MD [Primary Care Provider] -
[2019-02-01 04:40] VITALS: BP 157/109; PULSE 77
[2019-02-01] MEDS: PROCHLORPERAZINE 10 MG/2 ML VIAL IV (04:40)
[2019-02-01] MEDS: PANTOPRAZOLE 40 MG VIAL IV (04:41)
[2019-02-01 04:49] LABS: Add Manual Diff / Slide Review NO; Basophils Absolute Auto 0 /uL (0-100); Basophils Percent Auto 0.3 % (0-2); Eosinophils Absolute Auto 0 /uL (0-450); Eosinophils Percent Auto 0.2 % (2-4); Hematocrit 47.5 % (41-53); Hemoglobin 16.3 g/dL (13.5-17.5); Lymphocytes Absolute Auto 2200 /uL (1100-4500); Lymphocytes Percent Auto 18.6 % (25-40); Mean Corpuscular HGB Conc 34.2 % (30-36); Mean Corpuscular Hemoglobin 31.3 PG (26-34); Mean Corpuscular Volume 91.4 fL (80-100); Monocytes Absolute Auto 700 /uL (0-900); Monocytes Percent Auto 5.7 % (3-14); Neutrophils Absolute Auto 8900 /uL (1500-7000); Neutrophils Percent Auto 75.2 % (50-75); Platelet Count 284 X10^3/uL (150-400); Red Cell Distribution Width 13.1 % (11.6-14.8); White Blood Cell Count 11.9 X10^3/uL (4.5-11.0)
[2019-02-01 04:59] LABS: Alanine Aminotransferase 45 IU/L (21-72); Albumin 4.8 g/dL (3.5-5.0); Albumin Globulin Ratio 1.5 (1.0-2.8); Alkaline Phosphatase 83 U/L (38-126); Aspartate Aminotransferase 28 IU/L (17-59); BUN Creatinine Ratio 22.5 (6-22); Blood Urea Nitrogen 18 mg/dL (9-20); Calcium 9.9 mg/dL (8.4-10.2); Carbon Dioxide 22 mmol/L (22-32); Chloride 106 mmol/L (98-107); Estimated Glomerular Filt Rate > 60.0 mL/min (>60); Globulin 3.1 g/dL (1.7-4.1); Glucose 127 mg/dL (70-100); HEMOLYSIS < 15 (0-50); Lipase 57 U/L (23-300); Potassium 3.9 mmol/L (3.4-5.1); Sodium 140 mmol/L (137-145); Total Protein 7.9 g/dL (6.3-8.2)
[2019-02-01] MEDS: KETOROLAC 60 MG/2 ML VIAL 30 MG IV (04:59)
--- NOTE | 2019-02-01 05:03 | PC.NURSE ---
Pt reports nausea is getting better, but the pain is still 8/10. Pain medication given per Dr. Collins
[2019-02-01] MEDS: METOCLOPRAMIDE 10 MG/2 ML INJ IV (05:35)
[2019-02-01 05:36] VITALS: BP 168/100; PULSE 76; RESP 16; O2SAT 99
[2019-02-01 06:01] VITALS: BP 177/97; PULSE 76; RESP 16; TEMP 36.9; O2SAT 100
== END 2019-02-01 06:31 | disposition home or self-care (01) ==
PROVIDERS: Emergency Provider Emergency Medicine; PCP Family Medicine
DX: R11.0 Nausea (principal); R10.12 Left upper quadrant pain
CPT/HCPCS: 36415; 36591; 80053; 83690; 85025; 96361; 96374; 96375; 99283; 99284; C9113; J0780; J1885; J2765

== ENCOUNTER 2020-06-10 17:42 | Emergency (ER) | payer BC, SELFPAY ==
[2020-06-10 18:08] VITALS: BP 146/83; PULSE 88; RESP 16; TEMP 36.7; O2SAT 99; BMI 31.0
[2020-06-10 18:21] VITALS: PULSE 76; RESP 12; O2SAT 97
--- NOTE | 2020-06-10 18:28 | ED.NAVMDI ---
HPI - Nausea/Vomiting/Diarrhea <JESUS Holder - Last Filed: 06/10/20 20:27> General Chief complaint: Nausea/Vomiting/Diarrhea Stated complaint: Nausea/reflux/dry heaving Time Seen by Provider: 06/10/20 17:56 Source: patient Mode of arrival: Family Vehicle Limitations: no limitations History of Present Illness HPI Narrative: 45yo male with a history of chronic nausea vomiting, presents emergency department for nausea vomiting that started on Thursday. Patient states he has intermittent episodes like this, usually episodes of nausea vomiting occurred every 3-4 months. Initially seen a GI specialist that diagnosed him with a thicker upper stomach lining. He has not followed up with his PCP recently. He states when he has these episodes sometimes they can be managed at home he takes 0 days a drawn and occasional suppositories. He started having the symptoms on Thursday, felt better on , got worse on Thursday, felt better on Thursday and the symptoms are worse today. He states he has been dry heaving and has epigastric burning. He occasionally gets an epigastric not in his stomach. He denies any other abdominal pain, diarrhea, cramping, dizziness, chest pain, shortness of breath, fevers, or any other concerns. Related Data Home Medications Medication Instructions Recorded Confirmed omeprazole 20 mg PO DAILY PRN #0 04/27/13 08/25/18 Previous Rx's Medication Instructions Recorded prochlorperazine [Compazine] 25 mg CA Q12H PRN #12 each 08/25/18 metoclopramide HCl [Reglan] 10 mg PO Q6H PRN #10 tab 06/10/20 omeprazole 20 mg PO DAILY 14 Days #14 cap 06/10/20 Allergies Allergy/AdvReac Type Severity Reaction Status Date / Time No Known Drug Allergies Allergy Verified 09/17/18 17:10 Review of Systems <JESUS Holder - Last Filed: 06/10/20 20:27> Review of Systems Narrative: REVIEW OF SYSTEMS: GENERAL: Denies fever. HENT: No head trauma. CARDIOVASCULAR: No chest pain. RESPIRATORY: No shortness of breath. GASTROINTESTINAL: Complains of epigastric burning and nausea, see HPI. GENITOURINARY: No flank pain. MUSCULOSKELETAL: No pain, weakness, or trauma. INTEGUMENTARY: No rash, lesions, or pruritus. NEURO: No numbness. PSYCH: No behavior or mood changes. Patient History <JESUS Holder - Last Filed: 06/10/20 20:27> Medical History (Updated 06/10/20 @ 19:50 by JESUS Holder) Chronic GERD (Chronic) Intermittent left upper quadrant abdominal pain (Chronic) Intermittent vomiting (Chronic) Family History Other Family history non-contributory Social History Smoking Status: Current every day smoker Smoking Status: Current every day smoker tobacco type: cigarettes alcohol intake frequency: a few times a week Substance Use Type: marijuana Exam <JESUS Holder - Last Filed: 06/10/20 20:27> Initial Vital Signs Initial Vital Signs: Vital Signs Temperature 98.1 F 06/10/20 18:08 Pulse Rate 88 06/10/20 18:08 Respiratory Rate 16 06/10/20 18:08 Blood Pressure 146/83 H 06/10/20 18:08 Pulse Oximetry 99 06/10/20 18:08 PHYSICAL EXAMINATION: GENERAL: Well groomed, alert, and cooperative. Answers questions promptly and appropriately. Vital signs noted. HENT: Normocephalic, atraumatic. Hearing intact. Oral mucosa is pink and moist. EYES: Conjunctiva pink, sclera white, no periorbital swelling. CARDIOVASCULAR: S1 and S2 sounds normal. Regular rate and rhythm, no murmurs, clicks, or bruits. No pedal edema. RESPIRATORY: Normal respiratory rate, trachea midline, airway patent. No stridor, nasal flaring or accessory muscle use. Lungs are clear in all [place] without wheeze, rhonchi, or crackles. GASTROINTESTINAL: Bowel sounds normoactive. Abdomen is soft and non-tender. No organomegaly, no palpable masses. GENITALURINARY: No flank tenderness. MUSCULOSKELETAL: Normal gait and coordination. Equal tone and mass bilaterally. EXTREMITIES: CMS intact, no pedal edema. SKIN: Warm, dry, soft, appropriate color for ethnicity. No lesions, rashes, or wounds to visualized areas. NEURO: Alert and Oriented X 3. Good coordination. No ataxia, or sensory deficits, or cognitive issues. PSYCH: Appropriate affect and mood. <Bashir Godfrey MD - Last Filed: 06/11/20 01:02> Initial Vital Signs Initial Vital Signs: Vital Signs Temperature 98.1 F 06/10/20 18:08 Pulse Rate 88 06/10/20 18:08 Respiratory Rate 16 06/10/20 18:08 Blood Pressure 146/83 H 06/10/20 18:08 Pulse Oximetry 99 06/10/20 18:08 Course <JESUS Holder - Last Filed: 06/10/20 20:27> Course Course Narrative: Patient given IV fluids, ondansetron, Reglan, Toradol, and pantoprazole. Able to tolerate crackers and water post medication administration. States he is feeling much better. Denies any epigastric burning post medication administration. Is ready to be discharged home. Orders Ordered: ED Orders 06/10/20 18:38 Complete Blood Count AUTO DIFF Stat Comprehensive Metabolic Panel Stat Lipase Stat Troponin & CK Cardiac Panel Stat Discontinued Medications Sodium Chloride (Normal Saline 0.9%) 1,000 mls @ 1,000 mls/hr IV BOLUS ONE Stop: 06/10/20 19:20 Last Infusion: 06/10/20 19:47 Dose: 0 mls/hr Documented by: Admin: 06/10/20 18:47 Dose: 1,000 mls/hr Documented by: SONIA Ketorolac Tromethamine (Toradol) 30 mg IV NOW ONE Stop: 06/10/20 18:22 Last Admin: 06/10/20 18:51 Dose: 30 mg Documented by: SONIA Metoclopramide HCl (Reglan) 10 mg IV NOW ONE Stop: 06/10/20 18:22 Last Admin: 06/10/20 18:50 Dose: 10 mg Documented by: SONIA Ondansetron HCl (Zofran) 4 mg IV NOW ONE Stop: 06/10/20 18:22 Last Admin: 06/10/20 18:46 Dose: 4 mg Documented by: SONIA Pantoprazole Sodium (Protonix) 40 mg IV NOW ONE Stop: 06/10/20 18:22 Last Admin: 06/10/20 18:52 Dose: 40 mg Documented by: SONIA Vital Signs Vital signs: Vital Signs - 8 hr 06/10/20 18:08 06/10/20 18:21 06/10/20 18:30 Temperature 98.1 F Pulse Rate 88 76 79 Respiratory Rate 16 12 18 Blood Pressure 146/83 H Pulse Oximetry 99 97 98 06/10/20 19:00 06/10/20 19:30 Temperature Pulse Rate 88 77 Respiratory Rate 23 16 Blood Pressure Pulse Oximetry 100 96 <Bashir Godfrey MD - Last Filed: 06/11/20 01:02> Orders Ordered: ED Orders 06/10/20 18:38 Complete Blood Count AUTO DIFF Stat Comprehensive Metabolic Panel Stat Lipase Stat Troponin & CK Cardiac Panel Stat Discontinued Medications Sodium Chloride (Normal Saline 0.9%) 1,000 mls @ 1,000 mls/hr IV BOLUS ONE Stop: 06/10/20 19:20 Last Infusion: 06/10/20 19:47 Dose: 0 mls/hr Documented by: Admin: 06/10/20 18:47 Dose: 1,000 mls/hr Documented by: SONIA Ketorolac Tromethamine (Toradol) 30 mg IV NOW ONE Stop: 06/10/20 18:22 Last Admin: 06/10/20 18:51 Dose: 30 mg Documented by: SONIA Metoclopramide HCl (Reglan) 10 mg IV NOW ONE Stop: 06/10/20 18:22 Last Admin: 06/10/20 18:50 Dose: 10 mg Documented by: SONIA Ondansetron HCl (Zofran) 4 mg IV NOW ONE Stop: 06/10/20 18:22 Last Admin: 06/10/20 18:46 Dose: 4 mg Documented by: SONIA Pantoprazole Sodium (Protonix) 40 mg IV NOW ONE Stop: 06/10/20 18:22 Last Admin: 06/10/20 18:52 Dose: 40 mg Documented by: SONIA Vital Signs Vital signs: Vital Signs - 8 hr 06/10/20 18:08 06/10/20 18:21 06/10/20 18:30 Temperature 98.1 F Pulse Rate 88 76 79 Respiratory Rate 16 12 18 Blood Pressure 146/83 H Pulse Oximetry 99 97 98 06/10/20 19:00 06/10/20 19:30 Temperature Pulse Rate 88 77 Respiratory Rate 23 16 Blood Pressure Pulse Oximetry 100 96 MDM - Nausea/Vomiting/Diarrhea <JESUS Holder - Last Filed: 06/10/20 20:27> Medical Records Attestation: I reviewed the patient's medical records. Lab Data Attestation: I reviewed the patient's lab results. Result diagrams: 06/10/20 18:38 06/10/20 18:38 Labs: Lab Results 06/10/20 06/10/20 06/10/20 Range/Units 18:38 18:38 18:38 WBC 11.7 H (4.5-11.0) X10^3/uL RBC 4.89 (4.5-5.9) X10^6/uL Hgb 15.4 (13.5-17.5) g/dL Hct 44.5 (41-53) % MCV 91.2 (80-100) fL MCH 31.5 (26-34) PG MCHC 34.6 (30-36) % RDW 13.3 (11.6-14.8) % Plt Count 243 (150-400) X10^3/uL Neut % (Auto) 73.3 (50-75) % Lymph % (Auto) 18.1 L (25-40) % [place] % (Auto) 8.0 (3-14) % Eos % (Auto) 0.0 L (2-4) % Baso % (Auto) 0.6 (0-2) % Neut # (Auto) 8600 H (5848-2619) /uL Lymph # (Auto) 2100 (1939-7552) /uL [place] # (Auto) 900 (0-900) /uL Eos # (Auto) 0 (0-450) /uL Baso # (Auto) 100 (0-100) /uL Sodium 136 L (137-145) mmol/L Potassium 3.6 (3.4-5.1) mmol/L Chloride 103 (98-107) mmol/L Carbon Dioxide 27 (22-32) mmol/L BUN 17 (9-20) mg/dL Creatinine 0.76 (0.66-1.25) mg/dL Estimated GFR > 60.0 (>60) mL/min BUN/Creatinine Ratio 22.4 H (6-22) Glucose 100 (70-100) mg/dL Calcium 9.5 (8.4-10.2) mg/dL Total Bilirubin 1.9 H (0.2-1.3) mg/dL AST 35 (17-59) IU/L ALT 51 H (<50) IU/L Alkaline Phosphatase 73 (38-126) U/L Total Creatine Kinase 96 (55-170) U/L CK-MB (CK-2) TNP CK-MB (CK-2) Rel Index TNP Troponin I < 0.012 (0.01-0.034) ng/mL Total Protein 7.7 (6.3-8.2) g/dL Albumin 4.6 (3.5-5.0) g/dL Globulin 3.1 (1.7-4.1) g/dL Albumin/Globulin Ratio 1.5 (1.0-2.8) Lipase 42 (23-300) U/L ECG Data Interpretation: 1810: Sinus rhythm, rate 69, CA interval 156, QTC 428. No ST elevation or ST depression. No T-wave abnormality. No ectopy. EKG also viewed by Dr. Godfrey per protocol. MDM Narrative Medical decision making narrative: 45-year-old male presents emergency department with chronic episodes of vomiting, he states he has had on and off vomiting for the past week. Less concern for acute abdominal etiology due to lack of abdominal pain, exam non-remarkable, complete resolution of symptoms post medication administration. Patient was able to tolerate food and fluids without recurrence of vomiting. Less concerns for infection due to lack of tachycardia, patient is afebrile, and nontoxic appearing. Patient has a history of these episodes, he continues to confirm that this episode is similar in nature. He was discharged with omeprazole and Reglan to help with further vomiting. He was encouraged to follow up with his PCP, we discussed that he has not been following up in the past few months. He states ?I am trying to do better ?. Return precautions given for new or worsening symptoms. He agrees to plan of care verbalized understanding. <Bashir Godfrey MD - Last Filed: 06/11/20 01:02> Lab Data Labs: Lab Results 06/10/20 06/10/20 06/10/20 Range/Units 18:38 18:38 18:38 WBC 11.7 H (4.5-11.0) X10^3/uL RBC 4.89 (4.5-5.9) X10^6/uL Hgb 15.4 (13.5-17.5) g/dL Hct 44.5 (41-53) % MCV 91.2 (80-100) fL MCH 31.5 (26-34) PG MCHC 34.6 (30-36) % RDW 13.3 (11.6-14.8) % Plt Count 243 (150-400) X10^3/uL Neut % (Auto) 73.3 (50-75) % Lymph % (Auto) 18.1 L (25-40) % [place] % (Auto) 8.0 (3-14) % Eos % (Auto) 0.0 L (2-4) % Baso % (Auto) 0.6 (0-2) % Neut # (Auto) 8600 H (1227-1129) /uL Lymph # (Auto) 2100 (4767-8569) /uL [place] # (Auto) 900 (0-900) /uL Eos # (Auto) 0 (0-450) /uL Baso # (Auto) 100 (0-100) /uL Sodium 136 L (137-145) mmol/L Potassium 3.6 (3.4-5.1) mmol/L Chloride 103 (98-107) mmol/L Carbon Dioxide 27 (22-32) mmol/L BUN 17 (9-20) mg/dL Creatinine 0.76 (0.66-1.25) mg/dL Estimated GFR > 60.0 (>60) mL/min BUN/Creatinine Ratio 22.4 H (6-22) Glucose 100 (70-100) mg/dL Calcium 9.5 (8.4-10.2) mg/dL Total Bilirubin 1.9 H (0.2-1.3) mg/dL AST 35 (17-59) IU/L ALT 51 H (<50) IU/L Alkaline Phosphatase 73 (38-126) U/L Total Creatine Kinase 96 (55-170) U/L CK-MB (CK-2) TNP CK-MB (CK-2) Rel Index TNP Troponin I < 0.012 (0.01-0.034) ng/mL Total Protein 7.7 (6.3-8.2) g/dL Albumin 4.6 (3.5-5.0) g/dL Globulin 3.1 (1.7-4.1) g/dL Albumin/Globulin Ratio 1.5 (1.0-2.8) Lipase 42 (23-300) U/L Discharge Plan Departure Patient Disposition: Home Clinical Impression: Chronic vomiting Discharge Date/Time: 06/10/20 20:32 Instructions: DI for Vomiting -- Adult Activity Restrictions/Additional Instructions: Thank you for entrusting me with your care today. As discussed, your laboratory work is within normal limits. I highly suggest you follow-up with your primary care provider regarding these episodes of vomiting. I prescribed you Reglan, take this every 6 hours if you continue to feel nauseated. I have also prescribed omeprazole, use this for the next 2 weeks. Return emergency department for any new or worsening symptoms including worsening abdominal pain uncontrollable vomiting, or any other concerns. Prescriptions: New metoclopramide HCl [Reglan] 10 mg tablet 10 mg PO Q6H PRN (Reason: nausea and vomiting) Qty: 10 RF: 0 omeprazole 20 mg capsule,delayed release(DR/EC) 20 mg PO DAILY 14 Days Qty: 14 RF: 0 No Action omeprazole 20 MG capsule,delayed release(DR/EC) 20 mg PO DAILY PRN (Reason: Nausea) Qty: 0 RF: 0 prochlorperazine [Compazine] 25 mg suppository 25 mg CA Q12H PRN (Reason: nausea and vomiting) Qty: 12 RF: 0 Referrals: Eric Sun MD [Primary Care Provider] - <Bashir Godfrey MD - Last Filed: 06/11/20 01:02> Cosign ED Attending Cossandyature Attestation: I was immediately available in the department for consultation. This documentation has been reviewed and I agree with assessment and plan. Supervised by Bashir Godfrey MD
[2020-06-10 18:30] VITALS: PULSE 79; RESP 18; O2SAT 98
[2020-06-10 18:46] LABS: Add Manual Diff / Slide Review NO; Basophils Absolute Auto 100 /uL (0-100); Basophils Percent Auto 0.6 % (0-2); Eosinophils Absolute Auto 0 /uL (0-450); Hematocrit 44.5 % (41-53); Hemoglobin 15.4 g/dL (13.5-17.5); Lymphocytes Absolute Auto 2100 /uL (1100-4500); Lymphocytes Percent Auto 18.1 % (25-40); Mean Corpuscular HGB Conc 34.6 % (30-36); Mean Corpuscular Hemoglobin 31.5 PG (26-34); Mean Corpuscular Volume 91.2 fL (80-100); Monocytes Absolute Auto 900 /uL (0-900); Neutrophils Absolute Auto 8600 /uL (1500-7000); Neutrophils Percent Auto 73.3 % (50-75); Platelet Count 243 X10^3/uL (150-400); Red Blood Cell Count 4.89 X10^6/uL (4.5-5.9); Red Cell Distribution Width 13.3 % (11.6-14.8); White Blood Cell Count 11.7 X10^3/uL (4.5-11.0)
[2020-06-10] MEDS: ONDANSETRON 4 MG/2 ML INJ IV (18:46)
[2020-06-10] MEDS: SODIUM CHLORIDE 0.9% 1,000 ML 1000 ML IV (18:47)
[2020-06-10] MEDS: METOCLOPRAMIDE 10 MG/2 ML INJ IV (18:50)
[2020-06-10] MEDS: KETOROLAC 60 MG/2 ML VIAL 30 MG IV (18:51)
[2020-06-10] MEDS: PANTOPRAZOLE 40 MG VIAL IV (18:52)
[2020-06-10 18:59] LABS: Alanine Aminotransferase 51 IU/L (<50); Albumin 4.6 g/dL (3.5-5.0); Albumin Globulin Ratio 1.5 (1.0-2.8); Alkaline Phosphatase 73 U/L (38-126); Aspartate Aminotransferase 35 IU/L (17-59); BUN Creatinine Ratio 22.4 (6-22); Bilirubin Total 1.9 mg/dL (0.2-1.3); Blood Urea Nitrogen 17 mg/dL (9-20); Calcium 9.5 mg/dL (8.4-10.2); Carbon Dioxide 27 mmol/L (22-32); Chloride 103 mmol/L (98-107); Creatine Kinase 96 U/L (55-170); Estimated Glomerular Filt Rate > 60.0 mL/min (>60); Globulin 3.1 g/dL (1.7-4.1); Glucose 100 mg/dL (70-100); HEMOLYSIS < 15 (0-50); Lipase 42 U/L (23-300); Potassium 3.6 mmol/L (3.4-5.1); Sodium 136 mmol/L (137-145); Total Protein 7.7 g/dL (6.3-8.2)
[2020-06-10 19:00] VITALS: PULSE 88; RESP 23; O2SAT 100
[2020-06-10 19:11] LABS: Troponin I < 0.012 ng/mL (0.01-0.034)
[2020-06-10 19:30] VITALS: PULSE 77; RESP 16; O2SAT 96
== END 2020-06-10 20:32 | disposition home or self-care (01) ==
PROVIDERS: Emergency Provider Nurse Practitioner; PCP Family Medicine
DX: R11.10 Vomiting, unspecified (principal); R10.13 Epigastric pain
CPT/HCPCS: 36415; 80053; 82550; 83690; 84484; 85025; 93005; 96361; 96374; 96375; 99283; 99284; C9113; J1885; J2405; J2765

== ENCOUNTER 2021-11-21 08:07 | Emergency (ER) | payer BC, SELFPAY ==
[2021-11-21 08:16] VITALS: BP 169/88; PULSE 90; RESP 18; TEMP 36.4; O2SAT 100; BMI 31.3
--- NOTE | 2021-11-21 08:20 | DI.RAD.S_ITS ---
PROCEDURE: XR CHEST 2V INDICATIONS: pain/numbness, palpable TECHNIQUE: 2 views of the chest were acquired. COMPARISON: None. FINDINGS: Surgical changes and devices: None. Lungs and pleura: Lungs are clear. No pleural effusions or pneumothorax. Mediastinum: Mediastinal contours are normal. Heart size is normal. Bones and chest wall: No suspicious bony abnormalities. Soft tissues appear unremarkable. IMPRESSION: No evidence acute pulmonary process. Dictated by: Freddy Sagastume M.D. on 11/21/2021 at 8:34 Approved by: Freddy Sagastume M.D. on 11/21/2021 at 8:34
[2021-11-21 10:18] VITALS: PULSE 79; RESP 18; O2SAT 98
[2021-11-21 10:19] VITALS: BP 133/99; PULSE 71; RESP 15; O2SAT 100
[2021-11-21 10:30] VITALS: PULSE 65; RESP 12; O2SAT 100
[2021-11-21] MEDS: ONDANSETRON 4 MG/2 ML INJ IV (10:49)
--- NOTE | 2021-11-21 10:50 | ED_ITS ---
HPI - Chest Pain General Chief Complaint: Chest Pain Stated Complaint: Pain in left ribcage, numbness Time Seen by Provider: 11/21/21 10:14 Source: patient Mode of arrival: Ambulatory Limitations: no limitations History of Present Illness HPI narrative: The patient arrives complaining of left rib pain. At work he does lot of heavy lifting, but this likely came from roughhousing with his daughter. He thinks his daughter squeezing from height about 2 days ago, injuring his left ribs. There is now slight numbness at the site also. There is no abrasion or contusion. He has no rash at the site. He has been evaluated by his PCM, as well as Gastroenterology for chronic GI symptoms. He does nausea vomiting while here in the ER. Symptoms have been relieved with Zofran OTC. He has not been ill. He has no fever. He has no history of cardiopulmonary disease. Related Data Home Medications Medication Instructions Recorded Confirmed omeprazole 20 mg capsule,delayed 20 mg PO DAILY PRN #0 04/27/13 08/25/18 release Previous Rx's Medication Instructions Recorded prochlorperazine 25 mg rectal 25 mg UT Q12H PRN #12 each 08/25/18 suppository (Compazine) metoclopramide HCl 10 mg tablet 10 mg PO Q6H PRN #10 tab 06/10/20 (Reglan) Allergies Allergy/AdvReac Type Severity Reaction Status Date / Time No Known Drug Allergies Allergy Verified 09/17/18 17:10 Review of Systems Review of Systems Narrative: See HPI Patient History Medical History Chronic GERD Intermittent left upper quadrant abdominal pain Intermittent vomiting Family History Other Family history non-contributory Social History Smoking Status: Current every day smoker Smoking Status: Current every day smoker tobacco type: cigarettes alcohol intake frequency: holidays/special occasions only Substance Use Type: marijuana Exam Initial Vital Signs Initial Vital Signs: Vital Signs Temperature 97.6 F 11/21/21 08:16 Pulse Rate 90 11/21/21 08:16 Respiratory Rate 18 11/21/21 08:16 Blood Pressure 169/88 H 11/21/21 08:16 Pulse Oximetry 100 11/21/21 08:16 Const General: cooperative, healthy appearing and comfortable [facility] Head: normocephalic and atraumatic Neck Neck: No lymphadenopathy and No JVD Chest Other: Reproducible tenderness with palpation of the left anterior lateral ribs. No abrasion contusion. No crepitus. No palpable defects. Resp Auscultation: clear to auscultation bilaterally Cardio Rate: regular rate Rhythm: regular rhythm Heart Sounds: S1 normal, S2 normal and no murmurs GI Inspection: normal to inspection Palpation: soft, No guarding, No mass, No tender and No ascites Auscultation: normal bowel sounds Back/Spine/Pelvis Back: normal to inspection and No back tenderness Skin General: no rashes or lesions noted Neuro General: patient alert, patient awake, patient oriented x3 and no focal motor deficits Extrem General: normal to inspection, full ROM, no pedal edema and no calf tenderness Psych Mental Status: mental status grossly normal Course Orders Ordered: Discontinued Medications Ondansetron HCl (Ondansetron 4 Mg/2 Ml Inj) 4 mg IV NOW ONE Stop: 11/21/21 10:43 Last Admin: 11/21/21 10:49 Dose: 4 mg Documented by: ASEXTO Vital Signs Vital signs: Vital Signs - 8 hr 11/21/21 08:16 Temperature 97.6 F Pulse Rate 90 Respiratory Rate 18 Blood Pressure 169/88 H Pulse Oximetry 100 MDM - Chest Pain Imaging Data CXR/left rib x-ray.: Radiologist's Impression: No acute findings. ECG Data Attestation: I personally reviewed and interpreted this ECG as follows: (Normal sinus rhythm rate 71 beats per minute. Normal intervals. No ectopy. No acute ST T wave changes.) Discharge Plan Departure Patient Disposition: Home Clinical Impression: Contusion of rib on left side Instructions: DI for Rib Contusion Activity Restrictions/Additional Instructions: Advil 3 tabs every 6 hours as needed for left-sided rib pain. Practice deep breathing, keep the muscles you left chest stretched out. Return here if symptoms worsen. Prescriptions: No Action omeprazole 20 MG capsule,delayed release(DR/EC) 20 mg PO DAILY PRN (Reason: Nausea) Qty: 0 0RF metoclopramide HCl [Reglan] 10 mg tablet 10 mg PO Q6H PRN (Reason: nausea and vomiting) Qty: 10 0RF prochlorperazine [Compazine] 25 mg suppository 25 mg UT Q12H PRN (Reason: nausea and vomiting) Qty: 12 0RF Referrals: Eric Sun MD [Primary Care Provider] - Stand Alone Forms: Work Release Note
== END 2021-11-21 11:04 | disposition home or self-care (01) ==
PROVIDERS: Emergency Provider Emergency Medicine; PCP Family Medicine
DX: S20.212A Contusion of left front wall of thorax, initial encounter (principal); F17.210 Nicotine dependence, cigarettes, uncomplicated; X58.XXXA Exposure to other specified factors, initial encounter; Y93.89 Activity, other specified
CPT/HCPCS: 36415; 71046; 93005; 96374; 99284; J2405

== ENCOUNTER 2023-07-02 12:32 | Emergency (ER) | payer OTHER, SELFPAY ==
[2023-07-02 12:36] VITALS: BP 190/96; PULSE 79; RESP 16; TEMP 36.6; O2SAT 100; BMI 31.0
[2023-07-02 13:55] VITALS: BP 173/92; PULSE 67; RESP 16; O2SAT 98
--- NOTE | 2023-07-02 14:24 | ED_ITS ---
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 He had placed a cordless drill on a truss above him. He bumped the truss and the drill fell, striking him on the left upper lip. The area immediately bled and he provided pressure with a tissue. He was not hit in the head and did not lose consciousness. He overall feels well but presents for evaluation of the laceration. He does not take any blood thinner medicines. Last tetanus booster verify as given 12/05/2021 at PCP office. Related Data Home Medications Medication Instructions Recorded Confirmed omeprazole 20 mg capsule,delayed 20 mg PO DAILY PRN Nausea ##0 04/27/13 08/25/18 release Previous Rx's Medication Instructions Recorded prochlorperazine 25 mg rectal 25 mg DE Q12H PRN nausea and 08/25/18 suppository (Compazine) vomiting #12 ea metoclopramide HCl 10 mg tablet 10 mg PO Q6H PRN nausea and 06/10/20 (Reglan) vomiting #10 tabs Allergies Allergy/AdvReac Type Severity Reaction Status Date / Time No Known Drug Allergies Allergy Verified 09/17/18 17:10 Review of Systems <Maria Luisa Johnson PA-C - Last Filed: 07/02/23 14:32> Review of Systems ROS Unobtainable: All systems reviewed & are unremarkable except as noted in HPI and below Patient History <Maria Luisa Johnson PA-C - Last Filed: 07/02/23 14:32> Medical History Intermittent left upper quadrant abdominal pain Intermittent vomiting Chronic GERD Family History Other Family history non-contributory Social History Smoking Status: Current every day smoker Smoking Status: Current every day smoker tobacco type: cigarettes alcohol intake frequency: holidays/special occasions only Substance Use Type: marijuana Exam <Maria Luisa Johnson PA-C - Last Filed: 07/02/23 14:32> Narrative Exam Narrative: GENERAL: 48 year old patient appears stated age. Well-developed patient, in no distress. NEURO: AOx3. HEAD: Atraumatic. Normocephalic. EYES: Pupils equal round and reactive. Extraocular motions intact. No scleral icterus. No injection or drainage. ENT: Nose without bleeding or purulent drainage. Airway patent. 4 mm laceration to the left upper lip, superior to the vermilion border. Clot has formed and no active bleeding. Localized swelling of the left upper lip. Upon assessment of the underside of the upper lip, 1 cm laceration noted in the superficial wet vermilion. The laceration does not go [id number] the lip. Dentition is intact, tongue intact. RESPIRATORY: No distress. EXTREMITIES: No edema or joint tenderness. SKIN: No rash or erythema of visible areas Initial Vital Signs Initial Vital Signs: Vital Signs Temperature 98 F 07/02/23 12:36 Pulse Rate 79 07/02/23 12:36 Respiratory Rate 16 07/02/23 12:36 Blood Pressure 190/96 H 07/02/23 12:36 Pulse Oximetry 100 07/02/23 12:36 Oxygen Delivery Method Room Air 07/02/23 12:36 <Regla Banerjee MD - Last Filed: 07/02/23 14:59> Initial Vital Signs Initial Vital Signs: Vital Signs Temperature 98 F 07/02/23 12:36 Pulse Rate 79 07/02/23 12:36 Respiratory Rate 16 07/02/23 12:36 Blood Pressure 190/96 H 07/02/23 12:36 Pulse Oximetry 100 07/02/23 12:36 Oxygen Delivery Method Room Air 07/02/23 12:36 Procedures <Maria Luisa Johnson PA-C - Last Filed: 07/02/23 14:32> Laceration Repair Laceration 1: Site: lip Side (If applicable): left Size (cm): 1 Description: linear Depth: simple, single layer Pre-repair: wound explored and irrigated extensively Skin layer closed with: other (5-0 chromic gut) Skin layer suture size: 5-0 Number of sutures: 1 Technique: simple, interrupted Course <Maria Luisa Johnson PA-C - Last Filed: 07/02/23 14:32> Vital Signs Vital signs: Vital Signs - 8 hr 07/02/23 12:36 07/02/23 13:55 Temperature 98 F Pulse Rate 79 67 Respiratory Rate 16 16 Blood Pressure 190/96 H 173/92 H Pulse Oximetry 100 98 Oxygen Delivery Method Room Air Room Air <Regla Banerjee MD - Last Filed: 07/02/23 14:59> Vital Signs Vital signs: Vital Signs - 8 hr 07/02/23 12:36 07/02/23 13:55 Temperature 98 F Pulse Rate 79 67 Respiratory Rate 16 16 Blood Pressure 190/96 H 173/92 H Pulse Oximetry 100 98 Oxygen Delivery Method Room Air Room Air MDM - Wound/Laceration <Maria Luisa Johnson PA-C - Last Filed: 07/02/23 14:32> MDM Narrative Medical decision making narrative: Multiple etiologies for patient's symptoms considered including, but not limited to: Simple laceration, complex laceration, infectious risk. After discussion with the patient and his , decision made to place 1 suture to approximate the edges of the inner upper lip laceration. There was no through and through laceration. Laceration closed as documented above with chromic gut, patient shows no anesthetic given just 1 stitch. Patient tolerated well. Advised patient that sutures should be removed after 5 days if it does not absorb. Other discharge instructions given as documented below. Tetanus up-to-date. Patient's symptoms improved over duration of stay with above-stated therapies. Findings and discharge diagnosis discussed with patient/family followed by verbalization of understanding Return precautions discussed with patient/family whom verbalize understanding of diagnosis and plan Discharge Plan Departure Patient Disposition: Home Clinical Impression: Laceration of lip Qualifiers: Encounter type: initial encounter Qualified Code(s): S01.511A - Laceration without foreign body of lip, initial encounter Instructions: DI for Laceration Repair Activity Restrictions/Additional Instructions: *You have been diagnosed with upper lip laceration. One dissolvable suture was placed to close the gaping laceration. If the suture does not dissolve after 5 days, you should come back to the ER or the walk-in clinic for suture removal. In the meantime, I would suggest eating bland foods that will not irritate the area, rinsing your mouth after eating, applying Vaseline for moisturizing, applying ice to decrease the inflammation and discomfort. The laceration on the outside of the upper lip will heal fine without intervention. You last tentanus booster shot was on 12/05/21. You do not need a booster today. *What to do: *Please continue to take your regular medications as directed. [ ] New medication prescriptions sent to your pharmacy: [ ] [ ] New medication written as a paper prescription [x ] No new medications given *Please follow up with your primary care provider in 2-3 days, call for an appointment. Let them know you were seen in the Emergency Department and that we ask that you be seen in follow up. We will electronically transmit a record of today's note if your PCP is in our system *If you do not have a primary care provider please contact the [facility] Resource line at [phone]. They will ask some questions about your medical history and help get you set up with a doctor in the community. *Return to Emergency Department if you should have any new, worsening or concerning symptoms, such as [fever greater than 101 F, shaking chills, worsening pain, persistent vomiting or other concerning symptoms]. Prescriptions: No Action omeprazole 20 MG capsule,delayed release(DR/EC) 20 mg PO DAILY PRN (Reason: Nausea) Qty: 0 metoclopramide HCl [Reglan] 10 mg tablet 10 mg PO Q6H PRN (Reason: nausea and vomiting) Qty: 10 0RF prochlorperazine [Compazine] 25 mg suppository 25 mg DE Q12H PRN (Reason: nausea and vomiting) Qty: 12 0RF Referrals: Eric Sun MD [Primary Care Provider] - Stand Alone Forms: Patient Portal/API ED Sign-out <Regla Banerjee MD - Last Filed: 07/02/23 14:59> Cosign ED Attending Cosignature Attestation: I did not see this patient. I was available all times for consultation.
== END 2023-07-02 13:55 | disposition home or self-care (01) ==
PROVIDERS: Emergency Provider Physician Assistant; PCP Family Medicine
DX: S01.511A Laceration without foreign body of lip, initial encounter (principal); W20.1XXA Struck by object due to collapse of building, initial encounter; Y93.89 Activity, other specified; Y92.69 Other specified industrial and construction area as the place of occurrence of the external cause; Y99.0 Civilian activity done for income or pay
CPT/HCPCS: 12011; 99282; 99283